=== PATIENT | female | born 1940 | race Hispanic/Latino ===

== ENCOUNTER 2019-11-01 10:56 | Outpatient (CLI) | payer MEDICARE, SELFPAY ==
--- NOTE | ~2019-11-01 | XR_ITS ---
EXAMINATION: XR chest 2V DATE: 11/01/2019 11:45 INDICATION: Cough. TECHNIQUE: Frontal and lateral views of the chest were obtained. COMPARISON: Chest 2 views 04/04/2004 FINDINGS: The chest demonstrates clear lungs without pneumonia, pleural effusion, or pneumothorax. Th e heart size is normal. IMPRESSION: 1. No acute cardiopulmonary disease. Reviewed, dictated and finalized at location A.
[2019-11-01 11:46] LABS: Basophils Percent Auto 0.7 % (0.2-1.2); Eosinophils Absolute Auto 0.2 K/mm3 (0-0.3); Eosinophils Percent Auto 4.9 % (0-4.4); Hematocrit 42.3 % (37.0-47.0); Hemoglobin 14.2 g/dL (12.0-15.0); Immature Granulocyte Absolute 0.02 K/mm3 (0.00-0.031); Immature Granulocyte Percent A 0.4 % (0-0.5); Lymphocytes Percent Auto 28.8 % (18.3-44.2); Mean Corpuscular HGB Conc 33.6 g/dl (32-36); Mean Corpuscular Hemoglobin 30.3 pg (26-34); Mean Corpuscular Volume 90.2 fl (80-100); Mean Platelet Volume 9.6 fl (7.4-10.4); Monocytes Absolute Auto 0.4 K/mm3 (0.1-0.6); Monocytes Percent Auto 8.9 % (2.6-8.5); Neutrophils Absolute Auto 2.5 K/mm3 (1.3-6.7); Neutrophils Percent Auto 56.3 % (45.5-73.1); Platelet Count Result 276 k/mm3 (150-375); Red Blood Count 4.69 M/mm3 (4.2-5.4); Red Cell Distribution Width 13.7 % (11.5-14.5); White Blood Count 4.5 K/mm3 (4.5-10.0)
[2019-11-01 11:57] LABS: Alanine Aminotransferase 22 U/L (4-35); Albumin Level 4.6 g/dL (3.5-5.1); Alkaline Phosphatase 92 U/L (38-126); Aspartate Amino Transferase 30 U/L (14-36); Bilirubin,Total 0.4 mg/dL (0.2-1.3); Blood Urea Nitrogen 25 mg/dL (7-17); Calcium 9.1 mg/dL (8.4-10.2); Carbon Dioxide 26 mmol/L (22-30); Chloride 100 mmol/L (98-107); Cholesterol 265 mg/dL (0-200); Estimated Glomerular Filt Rate > 60; Glucose 111 mg/dL (65-105); HDL Direct 46 mg/dL; Potassium 3.6 mmol/L (3.4-5.0); Sodium 137 mmol/L (137-145); Triglycerides 177 mg/dL (<150)
[2019-11-01 12:08] LABS: LDL Cholesterol Direct 155 mg/dL
== END 2019-11-01 10:57 | disposition home or self-care (01) ==
PROVIDERS: PCP Family Medicine; Visit Provider Family Medicine
DX: R05 Cough (principal); I10 Essential (primary) hypertension; E78.2 Mixed hyperlipidemia; E04.9 Nontoxic goiter, unspecified
CPT/HCPCS: 36415; 71046; 80053; 80061; 84443; 85025

== ENCOUNTER 2020-10-21 14:08 | Outpatient (CLI) | payer MEDICARE, SELFPAY ==
[2020-10-21 15:10] LABS: Basophils Percent Auto 0.5 % (0.2-1.2); Eosinophils Absolute Auto 0.2 K/mm3 (0-0.3); Eosinophils Percent Auto 2.7 % (0-4.4); Hematocrit 42.9 % (37.0-47.0); Hemoglobin 14.3 g/dL (12.0-15.0); Immature Granulocyte Absolute 0.03 K/mm3 (0.00-0.031); Immature Granulocyte Percent A 0.5 % (0-0.5); Lymphocytes Absolute Auto 1.46 K/mm3 (0.9-3.2); Mean Corpuscular HGB Conc 33.3 g/dl (32-36); Mean Corpuscular Hemoglobin 30.7 pg (26-34); Mean Corpuscular Volume 92.1 fl (80-100); Mean Platelet Volume 9.5 fl (7.4-10.4); Monocytes Absolute Auto 0.4 K/mm3 (0.1-0.6); Monocytes Percent Auto 7.8 % (2.6-8.5); Neutrophils Absolute Auto 3.5 K/mm3 (1.3-6.7); Neutrophils Percent Auto 62.5 % (45.5-73.1); Platelet Count Result 306 k/mm3 (150-375); Red Blood Count 4.66 M/mm3 (4.2-5.4); Red Cell Distribution Width 14.2 % (11.5-14.5); White Blood Count 5.6 K/mm3 (4.5-10.0)
[2020-10-21 15:24] LABS: Alanine Aminotransferase 26 U/L (4-35); Albumin Level 4.4 g/dL (3.5-5.1); Alkaline Phosphatase 88 U/L (38-126); Anion Gap 8 mmol/L (8-16); Aspartate Amino Transferase 31 U/L (14-36); Bilirubin,Total 0.2 mg/dL (0.2-1.3); Blood Urea Nitrogen 24 mg/dL (7-17); Calcium 9.4 mg/dL (8.4-10.2); Carbon Dioxide 26 mmol/L (22-30); Chloride 104 mmol/L (98-107); Cholesterol 221 mg/dL (0-200); Estimated Glomerular Filt Rate 53; Glucose 116 mg/dL (65-105); HDL Direct 52 mg/dL; Sodium 138 mmol/L (137-145); Triglycerides 211 mg/dL (<150)
[2020-10-21 15:35] LABS: LDL Cholesterol Direct 111 mg/dL
[2020-10-25 02:20] LABS: Vitamin D 1,25 (OH)2 Total 55 pg/mL (18-72); Vitamin D2 1,25 (OH)2 <8 pg/mL; Vitamin D3 1,25 (OH)2 55 pg/mL
== END 2020-10-21 14:09 | disposition home or self-care (01) ==
LOC: ANHLAB 14:24
PROVIDERS: PCP Family Medicine; Visit Provider Family Medicine
DX: E03.9 Hypothyroidism, unspecified (principal); E78.2 Mixed hyperlipidemia; I10 Essential (primary) hypertension; E55.9 Vitamin D deficiency, unspecified
CPT/HCPCS: 36415; 80053; 80061; 82652; 84443; 85025

== ENCOUNTER 2021-02-17 14:59 | Outpatient (CLI) | payer MEDICARE, SELFPAY ==
--- NOTE | ~2021-02-17 | DEXA_ITS ---
Bone Density Report Name: Sarah Tan Age: 80 Sex: Female Ethnicity: White Date of : 1940 Indication: osteopenia; height loss; Referring Provider: JT JULIEN Study: Bone densitometry was performed. Exam Date: February 17, 2021 Accession number: [id number] Bone Density: Region BMD T-score Z-score Classification AP Spine (L1-L4) 0.928 -1.1 1.7 Osteopenia Femoral Neck (Left) 0.871 0.2 2.6 Normal Total Hip (Left) 0.929 -0.1 2.1 Normal Total Hip Bilateral Avg 0.931 -0.1 2.1 Normal Femoral Neck (Right) 0.957 1.0 3.4 Normal Total Hip (Right) 0.932 -0.1 2.1 Normal World Health Organization criteria for BMD impression classify patients as: Normal (T-score at or above -1.0), Osteopenia (T-score between -1.0 and -2.5), or Osteoporosis (T-score at or below -2.5). 10-year Fracture Risk(1): Major Osteoporotic Fracture 8.0% Hip Fracture 1.1% Reported Risk Factors: [place] (), Neck BMD=0.871, BMI=31.5 (1) FRAX(R) Version 3.08. Fracture probability calculated for an untreated patient. Fracture probability may be lower if the patient has received treatment. Previous Exams: Region Exam Age BMD T-score BMD Change BMD Change Date g/cm2 vs Baseline vs Previous AP Spine(L1-L4) 02/17/2021 80 0.928 -1.1 0.029(3.2%)# 0.045(5.1%)* 08/10/2017 77 0.883 -1.5 -0.016(-1.8%)# -0.016(-1.8%)# 06/01/2005 65 0.899 -1.3 Total Hip(Left) 02/17/2021 80 0.929 -0.1 -0.022(-2.3%)# -0.006(-0.6%) 08/10/2017 77 0.935 -0.1 -0.016(-1.7%)# -0.016(-1.7%)# 06/01/2005 65 0.951 0.1 Total Hip(Right) 02/17/2021 80 0.932 -0.1 -0.102(-9.8%)# 0.031(3.4%)* 08/10/2017 77 0.901 -0.3 -0.133(-12.8%) -0.133(-12.8%) 06/01/2005 65 1.034 0.8 *Denotes significance at 95% confidence level, LSC for AP Spine = 0.022 g/cm2, LSC for Total Hip = 0.027 g/cm2 Clinical Information Provided by Patient: Has used the following medications: Vitamin D, Calcium Patient maximum height was 64 Menopause Age: 53 Onset of menses at age 11 Number of children 2 Impression: The patient has low bone mass, based on the Total Spine T-score. The patient has an estimated ten-year risk of hip fracture of 1.1% and an estimated ten-year risk of major fracture of 8%, based on the WHO FRAX algorithm. No significant bone loss was observed. Discussion: BONE DENSITY IS LOW AT ONE OR MORE SKELETAL SITES. This patient's lowest T-score is lo
--- NOTE | ~2021-02-17 | MM_ITS ---
EXAMINATION: MM screening debra BI w colton HISTORY: Screening TECHNIQUE: Craniocaudal and mediolateral oblique 3-D tomosynthesis images were obtained and synthetic 2-D images were generated. CAD analysis was submitted and interpreted. COMPARISON: No prior mammogram is available for comparison at this institution. BREAST PARENCHYMAL COMPOSITION: There are scattered areas of fibroglandular density. FINDINGS: There is no evidence of suspicious mass, calcification, or architectural distortion to sugg est malignancy in either breast. There has been no suspicious interval change. IMPRESSION: 1. No mammographic evidence of malignancy. 2. Recommend routine screening mammography in one year. BI-RADS Category 1: Negative Reviewed, dictated and finalized at location A.
== END 2021-02-17 15:00 | disposition home or self-care (01) ==
PROVIDERS: PCP Family Medicine; Visit Provider Family Medicine
DX: Z12.31 Encounter for screening mammogram for malignant neoplasm of breast (principal); Z78.0 Asymptomatic menopausal state; M85.88 Other specified disorders of bone density and structure, other site
CPT/HCPCS: 77063; 77067; 77080

== ENCOUNTER → 2021-06-30 14:44 | Outpatient (CLI) | payer MEDICARE, SELFPAY ==
--- NOTE | ~2021-06-30 | CT_ITS ---
EXAMINATION: CT sinus wo con DATE: 06/30/2021 14:59 INDICATION: Chronic sinusitis TECHNIQUE: Computed tomography (CT) of the paranasal sinuses was performed without intravenous contra st. The dose-length product was 264.97 mGy-cm. Automated exposure control and iterative reconstructio n technique were employed. COMPARISON: CT dated 08/22/2017 FINDINGS: Mild mucosal thickening left maxillary sinus. Leftward nasal septal deviation. Ostiomeatal units are patent. No air-fluid levels or significant mucoperiosteal reaction. Mastoids are pneumatize d. There is intracranial atherosclerosis. IMPRESSION: 1. Mild left maxillary sinus disease. Reviewed, dictated and finalized at location B. R EXPEDITION GUIDE
== END ==
PROVIDERS: PCP Family Medicine; Visit Provider Otolaryngology
DX: J32.9 Chronic sinusitis, unspecified (principal)
CPT/HCPCS: 70486

== ENCOUNTER 2021-07-28 15:13 | Outpatient (CLI) | payer MEDICARE, SELFPAY ==
--- NOTE | ~2021-07-28 | XR_ITS ---
EXAMINATION: XR chest 2V 07/28/2021 15:39 INDICATION: Wheezing and hypertension PROCEDURE: 2 view chest COMPARISON: 11/01/2019 FINDINGS: The lungs are clear. The cardiomediastinal silhouette is within normal limits. There are no pleural effusions. There is no pneumothorax suspected. IMPRESSION: 1: NO ACUTE CARDIOPULMONARY DISEASE. Reviewed, dictated and finalized at location B. K TRACER
[2021-07-28 17:20] LABS: Basophils Absolute Auto 0.1 K/mm3 (0.0-0.1); Eosinophils Absolute Auto 0.1 K/mm3 (0-0.3); Eosinophils Percent Auto 1.8 % (0-4.4); Hematocrit 45.2 % (37.0-47.0); Hemoglobin 15.3 g/dL (12.0-15.0); Immature Granulocyte Absolute 0.04 K/mm3 (0.00-0.031); Immature Granulocyte Percent A 0.8 % (0-0.5); Lymphocytes Absolute Auto 1.65 K/mm3 (0.9-3.2); Lymphocytes Percent Auto 33.2 % (18.3-44.2); Mean Corpuscular HGB Conc 33.8 g/dl (32-36); Mean Corpuscular Hemoglobin 30.8 pg (26-34); Mean Corpuscular Volume 91.1 fl (80-100); Mean Platelet Volume 9.7 fl (7.4-10.4); Monocytes Absolute Auto 0.5 K/mm3 (0.1-0.6); Monocytes Percent Auto 9.5 % (2.6-8.5); Neutrophils Absolute Auto 2.7 K/mm3 (1.3-6.7); Neutrophils Percent Auto 53.7 % (45.5-73.1); Platelet Count Result 280 k/mm3 (150-375); Red Blood Count 4.96 M/mm3 (4.2-5.4); Red Cell Distribution Width 14.2 % (11.5-14.5)
[2021-07-28 17:33] LABS: Alanine Aminotransferase 25 U/L (4-35); Albumin Level 4.8 g/dL (3.5-5.1); Alkaline Phosphatase 85 U/L (38-126); Anion Gap 7 mmol/L (8-16); Aspartate Amino Transferase 32 U/L (14-36); Bilirubin,Total 0.6 mg/dL (0.2-1.3); Blood Urea Nitrogen 29 mg/dL (7-17); Calcium 9.5 mg/dL (8.4-10.2); Carbon Dioxide 29 mmol/L (22-30); Chloride 100 mmol/L (98-107); Cholesterol 232 mg/dL (0-200); Estimated Glomerular Filt Rate 47; Glucose 127 mg/dL (65-110); HDL Direct 61 mg/dL; Potassium 3.9 mmol/L (3.4-5.0); Sodium 136 mmol/L (137-145); Triglycerides 164 mg/dL (<150)
[2021-07-28 17:44] LABS: LDL Cholesterol Direct 110 mg/dL
== END 2021-07-28 15:14 | disposition home or self-care (01) ==
PROVIDERS: PCP Family Medicine; Visit Provider Family Medicine
DX: R06.2 Wheezing (principal); E78.2 Mixed hyperlipidemia; I10 Essential (primary) hypertension; R73.09 Other abnormal glucose
CPT/HCPCS: 36415; 71046; 80053; 80061; 83036; 85025

== ENCOUNTER 2023-01-20 14:46 | Outpatient (CLI) | payer MEDICARE, SELFPAY ==
--- NOTE | ~2023-01-20 | XR_ITS ---
EXAMINATION: XR lumbar spine min 4V DATE: 01/20/2023 15:10 INDICATION: Cephalgia, unspecified TECHNIQUE: Anteroposterior, lateral, and bilateral oblique views of the lumbar spine, and cone-down l ateral view of the lumbosacral junction were obtained. COMPARISON: None. FINDINGS: But alignment is normal. There is no fracture. Vertebral body heights are maintained. There is mild loss of intervertebral disc space height at L5-S1. There is moderate facet joint osteoarthri tis. Small degenerative osteophytes project from the anterior endplates of multiple vertebral bodies. Pelvic calcifications likely reflect phleboliths and calcified uterine fibroids. IMPRESSION: 1. Mild to moderate lumbar spondylosis without acute findings. Reviewed, dictated and finalized at location B.
== END 2023-01-20 14:47 | disposition home or self-care (01) ==
PROVIDERS: PCP Family Medicine; Visit Provider Family Medicine
DX: M43.06 Spondylolysis, lumbar region (principal)
CPT/HCPCS: 72110

== ENCOUNTER 2023-10-20 14:34 | Outpatient (CLI) | payer MEDICARE, SELFPAY ==
[2023-10-20 16:55] LABS: Alanine Aminotransferase 23 U/L (6-35); Albumin Level 4.6 g/dL (3.5-5.1); Alkaline Phosphatase 92 U/L (38-126); Anion Gap 11 mmol/L (4-12); Aspartate Amino Transferase 27 U/L (14-36); Bilirubin,Total 0.5 mg/dL (0.2-1.3); Blood Urea Nitrogen 23 mg/dL (7-17); Carbon Dioxide 23 mmol/L (22-30); Chloride 107 mmol/L (98-107); Estimated Glomerular Filt Rate 60; Glucose 94 mg/dL (65-110); Potassium 3.6 mmol/L (3.4-5.0); Sodium 141 mmol/L (137-145)
[2023-10-20 17:46] LABS: Hemoglobin A1C 6.7 % (<5.7)
[2023-10-20 17:54] LABS: Creatinine Urine 73.1 mg/dL
[2023-10-20 17:55] LABS: Microalbumin Urine Random 45.3 mg/L (0-16.7)
== END 2023-10-20 14:35 | disposition home or self-care (01) ==
LOC: ANHLAB 14:35
PROVIDERS: PCP Family Medicine; Visit Provider Family Medicine
DX: E78.00 Pure hypercholesterolemia, unspecified (principal); E11.9 Type 2 diabetes mellitus without complications; N18.30 Chronic kidney disease, stage 3 unspecified
CPT/HCPCS: 36415; 80053; 82043; 83036

== ENCOUNTER 2023-12-14 10:37 | Outpatient (CLI) | payer MEDICARE, SELFPAY ==
--- NOTE | ~2023-12-14 | CT_ITS ---
Non-contrast Head CT History: Altered mental status Technique: Axial non-contrast imaging of the brain was performed. Dose reduction technique was used on this scan by utilizing automated exposure control and iterative reconstruction technique. The dose -length product (DLP) was 599.57 mGy-cm. Findings: There is no evidence of intracranial hemorrhage, mass lesion, or acute infarct. Brain par enchyma appears normal. The ventricles and subarachnoid spaces are normal in size. The calvarium ap pears normal. The visualized paranasal sinuses and mastoid air cells are clear. Impression: No significant abnormality seen. Reviewed, dictated and finalized at location . Impression: No significant abnormality seen.
== END 2023-12-14 10:38 ==
LOC: MICIMG 10:38
PROVIDERS: PCP Family Medicine; Visit Provider Physician Assistant
DX: R42 Dizziness and giddiness (principal); R40.4 Transient alteration of awareness
CPT/HCPCS: 70450

== ENCOUNTER 2024-03-22 15:21 | Outpatient (CLI) | payer MEDICARE, SELFPAY ==
[2024-03-22 15:49] LABS: Basophils Percent Auto 0.8 % (0.2-1.2); Eosinophils Absolute Auto 0.1 K/mm3 (0-0.3); Eosinophils Percent Auto 2.1 % (0-4.4); Hematocrit 44.5 % (37.0-47.0); Hemoglobin 14.8 g/dL (12.0-15.0); Immature Granulocyte Absolute 0.03 K/mm3 (0.00-0.031); Immature Granulocyte Percent A 0.6 % (0-0.5); Lymphocytes Absolute Auto 1.31 K/mm3 (0.9-3.2); Lymphocytes Percent Auto 27.4 % (18.3-44.2); Mean Corpuscular HGB Conc 33.3 g/dl (32-36); Mean Corpuscular Hemoglobin 30.7 pg (26-34); Mean Corpuscular Volume 92.3 fl (80-100); Mean Platelet Volume 9.4 fl (7.4-10.4); Monocytes Absolute Auto 0.4 K/mm3 (0.1-0.6); Monocytes Percent Auto 8.4 % (2.6-8.5); Neutrophils Absolute Auto 2.9 K/mm3 (1.3-6.7); Neutrophils Percent Auto 60.7 % (45.5-73.1); Platelet Count Result 251 k/mm3 (150-375); Red Blood Count 4.82 M/mm3 (4.2-5.4); Red Cell Distribution Width 14.5 % (11.5-14.5); White Blood Count 4.8 K/mm3 (4.5-10.0)
[2024-03-22 16:26] LABS: Alanine Aminotransferase 21 U/L (6-35); Albumin Level 4.6 g/dL (3.5-5.1); Alkaline Phosphatase 91 U/L (38-126); Anion Gap 11 mmol/L (4-12); Aspartate Amino Transferase 29 U/L (14-36); Bilirubin,Total 0.5 mg/dL (0.2-1.3); Blood Urea Nitrogen 12 mg/dL (7-17); Calcium 9.4 mg/dL (8.4-10.2); Carbon Dioxide 25 mmol/L (22-30); Chloride 104 mmol/L (98-107); Estimated Glomerular Filt Rate > 60; Glucose 92 mg/dL (65-110); Potassium 3.8 mmol/L (3.4-5.0); Sodium 140 mmol/L (137-145)
[2024-03-22 18:04] LABS: Creatinine Urine 109.5 mg/dL
[2024-03-22 18:05] LABS: MALB Creatinine Ratio 62.6 mg/g (0-30); Microalbumin Urine Random 68.6 mg/L (0-16.7)
[2024-03-22 21:07] LABS: Hemoglobin A1C 7.2 % (<5.7)
== END 2024-03-22 15:22 | disposition home or self-care (01) ==
PROVIDERS: PCP Family Medicine; Visit Provider Family Medicine
DX: E11.9 Type 2 diabetes mellitus without complications (principal); E78.00 Pure hypercholesterolemia, unspecified; R32 Unspecified urinary incontinence; E03.9 Hypothyroidism, unspecified; I12.9 Hypertensive chronic kidney disease with stage 1 through stage 4 chronic kidney disease, or unspecified chronic kidney disease; N18.30 Chronic kidney disease, stage 3 unspecified
CPT/HCPCS: 36415; 80053; 82043; 83036; 84443; 85025

== ENCOUNTER 2024-03-28 11:20 | Outpatient (CLI) | payer MEDICARE, SELFPAY ==
[2024-03-28 12:13] LABS: Influenza A QL RT-PCR Negative (Negative); Influenza B QL RT-PCR Negative (Negative); RSV RNA, RT-PCR Negative (Negative); SARS-CoV-2 RNA PCR Negative (Negative)
== END 2024-03-28 11:21 | disposition home or self-care (01) ==
LOC: ANHLAB 11:22
PROVIDERS: PCP Family Medicine; Visit Provider Physician Assistant
DX: J02.9 Acute pharyngitis, unspecified (principal); R05.9 Cough, unspecified
CPT/HCPCS: 87637

== ENCOUNTER 2024-05-14 12:16 | Outpatient (CLI) | payer MEDICARE, SELFPAY ==
--- NOTE | ~2024-05-14 | XR_ITS ---
Clinical Indication: Pleurodynia PA and lateral views of the chest: Comparison: 07/28/2021 Findings: The lungs are clear, without evidence of focal consolidation or pleural effusion. Cardiome diastinal silhouette is within normal limits. Bones and soft tissues are unremarkable. Impression: Normal chest. Reviewed, dictated and finalized at [facility]. ITY SYSTEM REPAIRER Impression: Normal chest.
== END 2024-05-14 12:17 | disposition home or self-care (01) ==
PROVIDERS: PCP Family Medicine; Visit Provider Student in an Organized Health Care Education/Training Program
DX: R07.81 Pleurodynia (principal)
CPT/HCPCS: 71046

== ENCOUNTER 2024-05-15 14:30 | Outpatient (RCR) | payer MEDICARE, SELFPAY ==
--- NOTE | 2024-04-24 07:52 | PCPTNOTE ---
pt did not show for evaluation appt.
--- NOTE | 2024-04-25 13:34 | PTOPEVAL1 ---
Assessment and note entered by Nirmala Nettles, PT Evaluation Information Assessment Status Evaluation ICD-10 Condition Codes (PT) M25.561 Other ICD-10 Condition Codes ( M76.51 patellar tendonitis PT) Onset about one year Subjective Information had TKR in 2008, saw surgeon about 1 year ago and xray was OK, he told her there was inflammation in the knee; Activity: active; gym- bicycle 30 minutes, walk on treadmill 30-40 minutes, weight machines enjoys bowling; Reported Pain Level Pain Score Self Report Additional Pain Score Comments pain range in the past week -11/13; decrease pain: muscle cream; OTC meds, ice, heat, red light; instruct not to use heat for irritation increase pain: walking/stand 3-4 hours sleeping OK-- take sleep meds Assessment PT Clinical Summary Sarah has the diagnosis of R knee patellar tendonitis. She is active, goes to the fitness center for exercises and bowls regularly. Self assessment LE functional scale rating of 29% limitation in activity level. Standing/walking tolerance of 3-4 hours before have to sit down due to knee pain. Her medical history includes R TKR in 2008; she has followed up with the surgeon and xray was OK, per pt. With the evaluation: she has good strength of R LE, tightness of R hip IR, ER,extension motions and R knee flexion is 95'. Patella is positioned in slight lateral tilt. Skilled PT services are indicated for modalities to decrease pain, therapeutic exercises to stretch R hip and knee with education for HEP and pain management. Plan of Care Interventions Electrical Stimulation,Hot Pack/Cold Pack,Manual Therapy,Neuro Re-education,Patient Education,Therapeutic Activities,Therapeutic Exercise,Ultrasound,Other Other Interventions taping PT Services Indicated Yes Treatment Frequency and 1-2x/wk for 6 visits Duration These treatments will address the objective and functional deficits as defined above. The patient will be advanced safely and appropriately in order for the patient to progress towards his/her prior level of function. Additional exercises will be introduced and as well as a comprehensive home exercise program upon discharge, if needed, ?to ensure carryover of functional gains achieved in the clinic. This treatment plan has been reviewed and agreement upon by the patient.
--- NOTE | 2024-05-15 15:19 | PTOPDC ---
Assessment and note entered by Nirmala Nettles, PT Discharge Report Assessment Status Discharge ICD-10 Condition Codes (PT) Pain in right knee M25.561 Other ICD-10 Condition Codes ( M76.51 patellar tendonitis PT) Onset about one year Subjective Information knee is better; going to the fitness center and able to walk on the treadmill about 30-40 minutes; knee support strap is helping; have been doing all of the exercises from here at home also; agree to make today her last day of therapy; Reported Pain Level Pain Score Self Report Additional Pain Score Comments pain range in the past week 0-2/10; R distal patellar tendon, distal patella increase pain: sit too long and then go to stand up; walking too long, about 2-3 hours decrease pain: move, use knee strap brace; over counter meds- ibuprofen, tylenol kinesiotape horizontal strip at distal patella, educated pt on application of kinesiotape she wore in strap, long velcro that wrapped over distal patellar area- she stated it helps, but tight and left indentation in her skin. reinforced monitor skin and avoid too tight and indentations of skin Assessment PT Clinical Summary Sarah has received 4 PT sessions. She has improved with: decreased pain from 5-6/10 to 0-2/10; self assessment LE functional scale rating from 29 to 14% limitation in activity level reported walking/standing tolerance is about the same at 2-3 hours of activity; increase flexibility of R hip extension, IR and knee flexion motions; use of kinesiotape or knee strap to decrease pain. Education completed for HEP. The goals were partially met. Discharge PT services. She is to continue with her HEP and activity at fitness [place]. Plan of Care PT Services Indicated No
== END 2024-05-16 12:04 | disposition home or self-care (01) ==
LOC: ANHPT 14:30
PROVIDERS: PCP Family Medicine; Visit Provider Family Medicine
DX: M76.51 Patellar tendinitis, right knee (principal)
CPT/HCPCS: 97110; 97140; 97161; 97530

== ENCOUNTER 2024-05-17 14:06 | Outpatient (CLI) | payer MEDICARE, SELFPAY ==
--- NOTE | ~2024-05-17 | MM_ITS ---
EXAMINATION: MM screening debra BI w colton HISTORY: Screening TECHNIQUE: Craniocaudal and mediolateral oblique 3-D tomosynthesis images were obtained and synthetic 2-D images were generated. CAD analysis was submitted and interpreted. COMPARISON: 02/17/2021 BREAST PARENCHYMAL COMPOSITION: There are scattered areas of fibroglandular density. FINDINGS: There is no evidence of suspicious mass, calcification, or architectural distortion to sugg est malignancy in either breast. There has been no suspicious interval change. IMPRESSION: 1. No mammographic evidence of malignancy. 2. Recommend routine screening mammography in one year. BI-RADS CATEGORY 1 - NEGATIVE Reviewed, dictated and finalized at location B. CT ORIENTED PROGRAMMER
== END 2024-05-17 14:07 | disposition home or self-care (01) ==
PROVIDERS: PCP Family Medicine; Visit Provider Student in an Organized Health Care Education/Training Program
DX: Z12.31 Encounter for screening mammogram for malignant neoplasm of breast (principal)
CPT/HCPCS: 77063; 77067

== ENCOUNTER 2024-07-26 15:12 | Outpatient (CLI) | payer MEDICARE, SELFPAY ==
--- OUTSIDE RECORDS SUMMARY | 2024-07-26 14:52 | XMS_ITS | Clinical Summary ---
Author Organization [facility] Address [address] [place] [address] Care Team Providers Care Gate Agent Name Role Phone Bianca Booth MD Primary Care Provider Source Comments [facility],non[facility] Affiliates and Associated Physician Practices is amultiple site organization consisting of ambulatory clinics and hospital sitesin [place], [place], [place] and [place]. This disclosure is being madepursuant to the Care Everywhere program and may not contain all information available regarding this patient. Last updated 18.[facility] Allergies Active Allergy Reactions Criticality Noted Date Comments Hydrocodone 06/14/2011 Dizzy and palpitations Medications * Be aware that medications may not be up to date on this document. Alwaysverify current medications with the patient. Medication Sig Dispensed Refills Start Date End Date Status triamterene-hydrochlo rothiazide (DYAZIDE) 37.5-25 MG capsule Take 1 Cap by mouth once daily. Active rosuvastatin (CRESTOR) 5 MG tablet Take 5 mg by mouth at bedtime. Active Cholecalciferol (VITAMIN D3) 06324 UNIT CAPS Take by mouth 2 times daily. Active HYALURONIC ACID-VITAMIN C PO Take by mouth once daily. Active vitamin E (TOCOPHERYL) 400 UNIT tablet Take by mouth 2 times daily. Instructed patient to stop 1 week before surgery. Active Flaxseed, Linseed, (FLAXSEED OIL PO) Take by mouth 2 times daily. Active omeprazole (PRILOSEC) 40 MG capsule Take 40 mg by mouth as needed. Active GLUCOSAMINE CHONDROITIN COMPLX PO Take by mouth. Active aspirin 325 MG tablet Take 1 Tab by mouth 2 times daily. 120 Tab 09/30/2011 Active oxycodone-acetaminoph en (PERCOCET) 10-325 MG tablet Take 1 Tab by mouth every 4 hours as needed for Pain. 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/07/11 Aftercare following joint replacement L TKR 08/03/2011 S/P total knee replacement 07/28/2011 Immunizations Name Administration Dates Next Due PNEUMOCOCCAL PPSV23 10/01/2011 Family History Medical History Relation Name Comments Cancer Father prostate Diabetes Mother Heart Failure Mother Relation Name Status Comments Father Mother Social History Tobacco Use Types Packs/Day Years Used Date Smoking Tobacco: Never Smokeless Tobacco: Never Alcohol Use Standard Drinks/Week Comments No 0 (1 standard drink = 0.6 oz pur e alcohol) Sex and Gender Information Value Date Recorded Sex Assigned at Not on file Gender Identity Not on file Sexual Orientation Not on file Last Filed Vital Signs Vital Sign Reading Time Taken Comments Blood Pressure 121/61 10/01/2011 9:40 AM CDT Pulse 66 10/01/2011 8:42 AM CDT Temperature 37.3 C (99.1 F) 10/01/2011 8:42 AM CDT Respiratory Rate 16 10/01/2011 8:42 AM CDT Oxygen Saturation 96% 10/01/2011 8:42 AM CDT Inhaled Oxygen Concentration - - Weight 75.2 kg (165 lb 12.6 oz) 09/29/2011 6:55 AM CDT Height 162.6 cm (5' 4 ) 09/29/2011 6:55 AM CDT Body Mass Index 28.46 09/29/2011 6:55 AM CDT Plan of Treatment Health Maintenance Due Date Last Done Comments BONE DENSITY TESTING 1940 DTAP/TDAP/TD VACCINES (1 - Tdap) 1957 ZOSTER VACCINE (1 of 2) 1988 PNEUMOCOCCAL VACCINE 50+ (2 of 2 - PCV) 09/30/2012 10/01/2011 Respiratory Syncytial Virus (RSV) Vaccine Pt: or over 60 yrs (1 - 1-dose 75+ series) 2013 COVID-19 VACCINE (1 2023-2 5 season) 2024 INFLUENZA VACCINE (#1) 2024 DEPRESSION SCREENING 06/06/2024 MEDICARE AWV CALENDAR YEAR 2024 HEPATITIS B VACCINE Aged Out No longe r eligible based on patient's age to complete this topic HIB VACCINE Aged Out No longer eligi ble based on patient's age to complete this topic HPV VACCINE Aged Out No longer eligi ble based on patient's age to complete this topic MENINGOCOCCAL (Group B) VACCINE Aged Out No longer eligible based on patient's age to complete this topic MENINGOCOCCAL VACCINE Aged Out No deniz joshua eligible based on patient's age to complete this topic Advance Directives Documents on File Type Date Recorded Patient Side Gluer Expl anation Adv Directive/Living Will/POA 07/10/2011 9:58 AM * FULL RESUSCITATION (Latest Code Status on File) Date Activated Date Inactivated Comments 07/07/2011 10:45 AM 07/10/2011 12:21 AM Care Teams Gate Agent Relationship Specialty Start Date End Date Bianca Booth MD [address] [place] [address] [address] [place] [address] PCP - General 06/21/11
--- OUTSIDE RECORDS SUMMARY | 2024-07-26 14:52 | XMS_ITS | Continuity of Care Document ---
Author Organization [facility] Address [address] [facility] [address] [place] [address] Phone Care Team Providers Care Inspector Repairer [place] Name Role Phone Sarah Hai Unavailable Unavailable Procedures Procedure Date Eye Exam, New Patient Refraction Advance Directives Directive Yes / No Effective Date File Name No Information Encounters Encounter Description Practice Location Reason(s) For Visit Diagnoses Date Provider Providers Copied on Encounter [facility], [address], [place], [place], [id number], [place] tel:[phone] [facility] No Information 3-201 0 Sarah [facility]. [address], [place], [address], [place]. tel:[phone] Family History Family Member Type Diagnosis Age At Onset No Information Payers Payer name Insurance type Covered libertarian ID Authoriza tion(s) No Information Social History Type Description Quantity Date Captured Comments Sex Female Smoking Status No Information Chief Complaint And Reason For Visit No Information Reason For Referral Reason For Referral No Information History Of Present Illness Encounter Date Complaint History Of Prese nt Illness No Information Functional Status Date Functional Assessmen t No Information Instructions Date Instruction Additional Infor mation No Information Assessments Type Assessment Date No Information Patient Care Teams Name Effective Dates (start - stop) Status Members No Information
--- OUTSIDE RECORDS SUMMARY | 2024-07-26 14:52 | XMS_ITS | Clinical Summary ---
Author Organization [facility] Care Team Providers Care Welder Assembler Name Role Phone Unavailable Primary Care Provider Unavailabl e Social History Tobacco Use Types Packs/Day Years Used Date Smoking Tobacco: Never Assessed Comments Unknown Sex and Gender Information Value Date Recorded Sex Assigned at Not on file Legal Sex Female 2:12 PM CDT Gender Identity Not on file Sexual Orientation Not on file Plan of Treatment Health Maintenance Due Date Last Done Comments DEXA Bone Density 1940 Hepatitis C Virus (HCV) Screening 1940 TdaP Immunization 1940 Pneumococcal Immunization (5 0+ years) (1 of 1 - PCV) 1988 Zoster Immunization (1 of 2) 1988 Respiratory Syncytial Virus (RSV) Immunization (Adult) (1 - 1-dose 75+ series) 2013 Influenza Immunization (#1) 2024 SARS-COV-2 Immunization ( - season) 2024 Hepatitis B Immunization Aged Out No longer eligible based on patient's age to complete this topic Meningococcal Immunization (ACWY) Aged Out No longer eligible based on patient's age to complete this topic Rotavirus Immunization Aged Out No lo nger eligible based on patient's age to complete this topic
--- OUTSIDE RECORDS SUMMARY | 2024-07-26 14:52 | XMS_ITS | Continuity of Care Document ---
Author Organization [facility] Address [address] [place] [address] Phone Care Team Providers Care Pediatric Occupational Therapist Name Role Phone Velma Bran MD Unavailable Unavailable Allergies, Adverse Reactions, Alerts Substance Reaction Status Criticality No Known Allergies Active No Inform ation Procedures Procedure Date X-RAY EXAM OF KNEE, A/P & LAT KENALOG 10 MG ASP/INJ MAJOR JOINTOR BURSA, SHOULDER, H IP,KNEE W/O US GUIDANCE OFFICE [id number] Advance Directives Directive Yes / No Effective Date File Name No Information Encounters Encounter Description Practice Location Reason(s) For Visit Diagnoses Date Provider Providers Copied on Encounter OFFICE [id number], [address], [place], [place], [id number], [place] tel:[phone] [facility] RT Knee (chief complaint) Chronic pain of right knee Shant Carreon. Doc [address], [facility] [address], [place], [place], [address], [place]. tel:[phone] Referring Provider: Doc [address] [facility] [address], [place], [address]. tel:[phone] Family History Family Member Type Diagnosis Age At Onset No Information Payers Payer name Insurance type Covered green party ID Authoriza tion(s) [facility] AD[employer] PPO [place] [id number] Social History Type Description Quantity Date Captured Comments Alcohol Use Details Unknown Caffeine Use Details Unknown Tobacco Use Status Current non-smoker Smoking Status Never smoker Non-Smoking Tobacco Use Details : No Details Available : No Details Available Sex Female Sexual Orientation Straight or heterosexual Gender Identity Female Vital Signs Date / Time: Height Weight BMI Pulse Rate Blood Pressure Temperature Respiratory Rate Body Surface Area Head Circumference Head Circ. Percentile Wt./Hill. Percentile BMI percentile Pulse Ox Inhaled Ox 2:56 PM 65.00 in 72.575 kg (160.00 lbs) 26.6 3 kg/m catherineer (2) Chief Complaint And Reason For Visit From encounter dated '05/11/2021 13:00'. RT Knee (chief complaint). Description: hx right and left tkr left painless right with intermittent3/10 stabbing front left xrays good position without change imp scar tissue right knee injection given right knee fu as needed Reason For Referral Reason For Referral No Information Plan Of Treatment Date Type Action Status Referral Ordered: X-RAY EXAM OF KNEE, ONE OR TWO VIEWS Right ordered History Of Present Illness Encounter Date Complaint History Of Prese nt Illness RT Knee hx right and lef t tkr left painless right with intermittent 3/10 stabbing front left xrays good position without change imp scar tissue right knee injection given right knee fu as needed Functional Status Date Functional Assessmen t No Information Instructions Date Instruction Additional Infor mation rioght tkr doing wel l injeciton given right knee Related to Chronic pain of right knee Disease process Assessments Type Assessment Date assessment Chronic pain of right knee Mental Status Date Cognitive Assessment Orientation - [place] ed to time, place, person, situation. Patient Care Teams Name Effective Dates (start - stop) Status Members No Information
--- OUTSIDE RECORDS SUMMARY | 2024-07-26 14:52 | XMS_ITS | Referral Summary ---
Author Organization [facility] Address [address] [address] Care Team Providers Care Radiologist Chief Of Breast Imaging Name Role Phone Bianca Booth MD Primary Care Provider Source Comments [facility],non-[facility] Affiliates and Associated Physician Practices is amultiple site organization consisting of ambulatory clinics and hospital sitesin [place], [place], [place] and [place]. This disclosure is being madepursuant to the Care Everywhere program and may not contain all information available regarding this patient. Last updated 18.[facility] Allergies Active Allergy Reactions Criticality Noted Date [...] mouth at bedtime. Active Cholecalciferol (VITAMIN D3) 28160 UNIT CAPS Take by mouth 2 times [...] Administration Dates Next Due PNEUMOCOCCAL PPSV23 10/01/2011 Social History Tobacco Use Types Packs/Day Years [...] 09/29/2011 6:55 AM CDT Plan of Treatment Not on file Administered Medications Advance Directives Documents on File Type Date Recorded Patient Crown Ironer Expl anation Adv Directive/Living Will/POA 07/10/2011 9:58 AM * FULL RESUSCITATION (Latest Code Status on File) Date Activated Date Inactivated Comments 07/07/2011 10:45 AM 07/10/2011 12:21 AM Care Teams Radiologist Chief Of Breast Imaging Relationship Specialty Start Date End Date Bianca Booth MD [address] [place] [phone] PCP - General 06/21/11
--- OUTSIDE RECORDS SUMMARY | 2024-07-26 14:52 | XMS_ITS | Patient Health Summary ---
Author Organization [facility] Address [address] [place] [address] Care Team Providers Care Flying Ii Instructor Name Role Phone Bianca Booth MD Primary Care Provider Note from [facility],non-owned Affiliates and Associated Physician Practices is amultiple site organization consisting of ambulatory clinics and hospital sitesin [place], [place], [place] and [place]. This disclosure is being madepursuant to the Care Everywhere program and may not contain all information available regarding this patient. Last updated 18.[facility] [place] Allergies * Hydrocodone(Dizzy and palpitations) Medications * Be aware that medications may not be up to date on this document. Alwaysverify current medications with the patient. * triamterene-hydrochlorothiazide (DYAZIDE) 37.5-25 MG capsule Take 1 Cap by mouth once daily. * rosuvastatin (CRESTOR) 5 MG tablet Take 5 mg by mouth at bedtime. * Cholecalciferol (VITAMIN D3) 66517 UNIT CAPS Take by mouth 2 times daily. * HYALURONIC ACID-VITAMIN C PO Take by mouth once daily. * vitamin E (TOCOPHERYL) 400 UNIT tablet Take by mouth 2 times daily. Instructed patient to stop 1 week before surgery. * Flaxseed, Linseed, (FLAXSEED OIL PO) Take by mouth 2 times daily. * omeprazole (PRILOSEC) 40 MG capsule Take 40 mg by mouth as needed. * GLUCOSAMINE CHONDROITIN COMPLX PO Take by mouth. * aspirin 325 MG tablet(Started 09/30/2011) Take 1 Tab by mouth 2 times daily. * oxycodone-acetaminophen (PERCOCET) 10-325 MG tablet(Started 10/01/2011) Take 1 Tab by mouth every 4 hours as needed for Pain. Active Problems Problem Noted Date Diagnosed Date Primary localized osteoarthrosis, lower leg DJD R KNEE 09/08/2011 S/P total knee replacement LEFT TKR ON 07/07/11 Aftercare following joint replacement L TKR 08/03/2011 S/P total knee replacement 07/28/2011 Immunizations * PNEUMOCOCCAL PPSV23(Given 10/01/2011) Social History Tobacco Use Types Packs/Day Years [...] Mass Index 28.46 09/29/2011 6:55 AM CDT Procedures * XR KNEE RIGHT 2VW OR LESS(Performed 10/20/2011) Performed for S/P total knee replacement * IP CONSULT TO HOME HEALTH CARE(Performed 10/01/2011) * HGB HCT PANEL(Performed 10/01/2011) * BASIC METABOLIC PANEL (CALCIUM TOTAL)(Performed 09/30/2011) * HGB HCT PANEL(Performed 09/30/2011) * CULTURE MSSA/MRSA(Performed 09/08/2011) Performed for Preoperative examination, unspecified * XR KNEE LEFT 2VW OR LESS(Performed 07/28/2011) Performed for S/P total knee replacement LEFT TKR ON 07/07/11 * CARDIAC EKG ORDER(Performed 07/10/2011) * IP CONSULT TO HOME HEALTH CARE(Performed 07/09/2011) * HGB HCT PANEL(Performed 07/09/2011) * HGB HCT PANEL(Performed 07/08/2011) * IP CONSULT TO HOSPITALIST(Performed 07/07/2011) * CARDIAC EKG ORDER(Performed 06/23/2011) * URINALYSIS REFLEX MICROSCOPIC REFLEX CULTURE(Performed 06/21/2011) Performed for Preoperative examination, unspecified * BASIC METABOLIC PANEL (CALCIUM TOTAL)(Performed 06/21/2011) Performed for Preoperative examination, unspecified * HGB HCT PANEL(Performed 06/21/2011) Performed for Preoperative examination, unspecified * CULTURE MSSA/MRSA(Performed 06/21/2011) Performed for Preoperative examination, unspecified * XR KNEE BILAT STANDING 1VW(Performed 06/11/2011) Performed for DJD (degenerative joint disease) of knee Results * XR KNEE 1 OR 2 VW RIGHT (10/20/2011 3:59 PM CDT) Anatomical Region Laterality Modality Lower Extremity Other Narrative 10/20/2011 3:59 PM CDT Lilian De Jesus 10/20/2011 3:59 PM Please see progress notes for result. Procedure Note Lilian De Jesus - 10/20/2011 3:59 PM CDT Please see progress notes for result. Velma Bran MD DIAGNOSTIC IMAGING O RDERABLES * IP CONSULT TO HOME CARE (10/01/2011 11:24 AM CDT) Only the most recent of2 resultswithin the time period is included. Narrative Katelin Sofia LPN - 10/01/2011 11:24 AM CDT Katelin Sofia LPN 10/01/2011 11:24 AM CONSULT NOTED, SPOKE WITH PATIENT, [facility] OK TO FOLLOW AT DISCHARGE THANK YOU FOR THE REFERRAL Katelin Sofia CORPORATE EXECUTIVE [facility] Advertising Account Representative Procedure Note Katelin Sofia LPN - 10/01/2011 11:24 AM CDT CONSULT NOTED, SPOKE WITH PATIENT, [facility] OK TO FOLLOW ATDISCHARGE THANK YOU FOR THE REFERRAL Katelin Sofia CORPORATE EXECUTIVE [facility] Advertising Account Representative Velma Bran MD INPATIENT ANCILLARY CONSULT * (ABNORMAL) HGB HCT PANEL (10/01/2011 5:10 AM CDT) Only the most recent of5 resultswithin the time period is included. Hemoglobin 9.1(L) 12.0 - 16.0 gm/dl [facility] Hematocrit 28.0(L) 36.0 - 48.0 % [facility] Blood specimen (specimen) BLOOD SPECIMEN / Unknown 10/01/2011 5:10 AM CDT 10/01/2011 5:13 AM CDT Velma Bran MD LAB - HEMATOLOGY ORD ERABLES Performing Organization Address [facility] Co de Phone Number [facility] [address] [place] [address] * (ABNORMAL) BASIC METABOLIC PANEL (CALCIUM TOTAL) (09/30/2011 3:37 AM CDT) Only the most recent of2 resultswithin the time period is included. Pathologist [facility] BUN 20 7.0 - 21.0 mg/dL [facility] Sodium 139 136 - 145 mmol/L [facility] Potassium 4.6 3.5 - 5.1 mmol/L [facility] Chloride 101 98.0 - 107.0 mmol/L [facility] CO2 29 22.0 - 30.0 mmol/L [facility] Anion Gap 9.0 [facility] Glucose 151(H) 74 - 106 mg/dL [facility] Creatinine 0.90 0.5 - 1.3 mg/dL [facility] Calcium 8.1(L) 8.5 - 10.1 mg/dL [facility] eGFR by MDRD 61 mL/min/1.7 3m2 [facility] Blood specimen (specimen) BLOOD SPECIMEN / Unknown 09/30/2011 3:37 AM CDT 09/30/2011 3:47 AM CDT Velma Bran MD LAB - CHEMISTRY ORDE RABCANDY Performing Organization Address [facility] Co de Phone Number [facility] [address] [place] [address] * CULTURE MSSA/MRSA (09/08/2011 4:35 PM CDT) Only the most recent of2 resultswithin the time period is included. Result [facility] Comment: Final CULTURE NO growth S.aureus/NO growth S.aureus (MRSA) SPECIMEN FROM NASAL FOSSAE / Unknown 09/08/2011 4:35 PM CDT 09/08/2011 4:35 PM CDT Narrative Resulting Agency Comment Performed By [facility];[address];[place] [address] Velma Bran MD LAB - MICROBIOLOGY O RDERABLES [facility] [address] [place] [address] * XR KNEE 1 OR 2 VW LEFT (07/28/2011 1:13 PM HOSPITAL SUPERVISOR) Anatomical Region Laterality Modality Lower Extremity Other Narrative 07/28/2011 1:13 PM HOSPITAL SUPERVISOR Lilian De Jesus 07/28/2011 1:13 PM Please see progress notes for result. Procedure Note Lilian De Jesus - 07/28/2011 1:13 PM CST Please see progress notes for result. Velma Bran MD DIAGNOSTIC IMAGING O RDERABLES * CARDIAC EKG ORDER (07/10/2011 10:18 AM HOSPITAL SUPERVISOR) Only the most recent of2 resultswithin the time period is included. Narrative Transcriptions Document, Scanned - 07/10/2011 10:18 AM CST Scanned Document CARDIAC SERVICES ORD ERABLES * IP CONSULT TO HOSPITALIST (07/07/2011 1:30 PM HOSPITAL SUPERVISOR) Narrative Jenifer Hummel MD - 07/07/2011 1:30 PM HOSPITAL SUPERVISOR Jenifer Hummel MD 07/07/2011 1:30 PM Seen and examined Full note to follow A/p djd knee Dyslipidemia HTN GERD Snoring dvt ppx [id number] Procedure Note Jenifer Hummel MD - 07/07/2011 1:25 PM CST Seen and examined Full note to follow A/p djd knee Dyslipidemia HTN GERD Snoring dvt ppx [id number] Velma Bran MD INPATIENT CONSULT OR DERABLES * URINALYSIS ROUTINE W/REFLEX TO CULTURE (06/21/2011 2:00 PM HOSPITAL SUPERVISOR) Color UA YELLOW [facility] Character UA CLEAR [facility] Specific Ajo UA 1.023 1.005 - 1.0300 [facility] pH UA 5.0 4.6 - 8.0 pH Units [facility] Leukocyte UA NEGATIVE Negative /ul [facility] Nitrite UA NEGATIVE Negative [facility] Protein UA NEGATIVE Negative mg/dl [facility] Glucose UA NEGATIVE Normal mg/dl [facility] Ketone UA NEGATIVE Negative mg/dl [facility] Urobilinogen UA 0.2 Normal Elyssa Units [facility] Bilirubin UA NEGATIVE Negative mg/dl [facility] Blood UA NEGATIVE Negative /ul [facility] WBC UA 0-2 <5 /HPF [facility] RBC UA 0-2 <5 /HPF [facility] Epithelial Cell UA 0-2 <5 /HPF [facility] Casts UA 0-2 <2 /LPF [facility] Bacteria UA NEGATIVE [facility] Urine Culture No culture to be done per protocol. [facility] Urine specimen (specimen) URINE SPECIMEN OBTAINED BY CLEAN CATCH PROCEDURE / Unknown 06/21/2011 2:00 PM HOSPITAL SUPERVISOR 06/21/2011 2:44 PM HOSPITAL SUPERVISOR Velma Bran MD LAB - URINALYSIS ORD ERABLES [facility] [address] [place] [address] * XR KNEES AP BILATERAL STANDING (06/11/2011 2:50 PM HOSPITAL SUPERVISOR) Anatomical Region Laterality Modality Lower Extremity Other Narrative 06/11/2011 2:50 PM HOSPITAL SUPERVISOR RT Cristian 06/11/2011 2:50 PM Please see office note for result. Procedure Note Ashley Modi, - 06/11/2011 2:49 PM CST Please see office note for result. Velma Bran MD DIAGNOSTIC IMAGING O RDERABLES Care Teams Flying Ii Instructor Relationship Specialty Start Date End Date Bianca Booth MD [address] [place] [phone] [facility] - General 06/21/11
--- OUTSIDE RECORDS SUMMARY | 2024-07-26 15:14 | XMS_ITS | Patient Health Summary ---
Author Organization [facility] Address [address] [place] [address] Care Team Providers Care Pilot Boat Deckhand Name Role Phone Bianca Booth MD Primary Care Provider Note from [facility],non-owned Affiliates and Associated Physician Practices is amultiple site organization consisting of ambulatory clinics and hospital sitesin [place], [place], [place] and [place]. This disclosure is being madepursuant to the Care Everywhere program and may not contain all information available regarding this patient. Last updated 18.[facility] [place] Allergies * Hydrocodone(Dizzy and palpitations) Medications * Be aware that medications may not be up to date on this document. Alwaysverify current medications with the patient. * triamterene-hydrochlorothiazide (DYAZIDE) 37.5-25 MG capsule Take 1 Cap by mouth once daily. * rosuvastatin (CRESTOR) 5 MG tablet Take 5 mg by mouth at bedtime. * Cholecalciferol (VITAMIN D3) 11728 UNIT CAPS Take by mouth 2 times [...] THANK YOU FOR THE REFERRAL Katelin Sofia FAMILY PRACTICE MEDICAL DOCTOR [facility] Sewing Machine Repairer Helper Procedure Note Katelin Sofia LPN - 10/01/2011 11:24 AM CDT CONSULT NOTED, SPOKE WITH PATIENT, [facility] OK TO FOLLOW ATDISCHARGE THANK YOU FOR THE REFERRAL Katelin Sofia FAMILY PRACTICE MEDICAL DOCTOR [facility] Sewing Machine Repairer Helper Velma Bran MD INPATIENT ANCILLARY CONSULT * (ABNORMAL) HGB HCT PANEL (10/01/2011 5:10 AM CDT) Only the most recent of5 resultswithin the time period is included. Hemoglobin 9.1(L) 12.0 - 16.0 gm/dl [facility] Hematocrit 28.0(L) 36.0 - 48.0 % [facility] Blood specimen (specimen) BLOOD SPECIMEN / Unknown 10/01/2011 5:10 AM CDT 10/01/2011 5:13 AM CDT Velma Bran MD LAB - HEMATOLOGY ORD ERABLES Performing Organization Address [facility] Co de Phone Number [facility] [address] [place] [address] * (ABNORMAL) BASIC METABOLIC PANEL (CALCIUM TOTAL) (09/30/2011 3:37 AM CDT) Only the most recent of2 resultswithin the time period is included. Pathologist [facility] BUN 20 7.0 - 21.0 mg/dL [facility] Sodium 139 136 - 145 mmol/L [facility] Potassium 4.6 3.5 - 5.1 mmol/L [facility] Chloride 101 98.0 - 107.0 mmol/L [facility] CO2 29 22.0 - 30.0 mmol/L [facility] Anion Gap 9.0 [facility] Glucose 151(H) 74 - 106 mg/dL [facility] Creatinine 0.90 0.5 - 1.3 mg/dL [facility] Calcium 8.1(L) 8.5 - 10.1 mg/dL [facility] eGFR by MDRD 61 mL/min/1.7 3m2 [facility] Blood specimen (specimen) BLOOD SPECIMEN / Unknown 09/30/2011 3:37 AM CDT 09/30/2011 3:47 AM CDT Velma Bran MD LAB - CHEMISTRY ORDE RABCANDY Performing Organization Address [facility] Co de Phone Number [facility] [address] [place] [address] * CULTURE MSSA/MRSA (09/08/2011 4:35 PM CDT) Only the most recent of2 resultswithin the time period is included. Result [facility] Comment: Final CULTURE NO growth S.aureus/NO growth S.aureus (MRSA) SPECIMEN FROM NASAL FOSSAE / Unknown 09/08/2011 4:35 PM CDT 09/08/2011 4:35 PM CDT Narrative Resulting Agency Comment Performed By [facility];[address];[place] [address] Velma Bran MD LAB - MICROBIOLOGY O RDERABLES [facility] [address] [place] [address] * XR KNEE 1 OR 2 VW LEFT (07/28/2011 1:13 PM ARTILLERY OFFICER) Anatomical Region Laterality Modality Lower Extremity Other Narrative 07/28/2011 1:13 PM ARTILLERY OFFICER Lilian De Jesus 07/28/2011 1:13 PM Please see progress notes for result. Procedure Note Lilian De Jesus - 07/28/2011 1:13 PM CST Please see progress notes for result. Velma Bran MD DIAGNOSTIC IMAGING O RDERABLES * CARDIAC EKG ORDER (07/10/2011 10:18 AM ARTILLERY OFFICER) Only the most recent of2 resultswithin the time period is included. Narrative Transcriptions Document, Scanned - 07/10/2011 10:18 AM CST Scanned Document CARDIAC SERVICES ORD ERABLES * IP CONSULT TO HOSPITALIST (07/07/2011 1:30 PM ARTILLERY OFFICER) Narrative Jenifer Hummel MD - 07/07/2011 1:30 PM ARTILLERY OFFICER Jenifer Hummel MD 07/07/2011 1:30 PM Seen and examined Full note to follow A/p djd knee Dyslipidemia HTN GERD Snoring dvt ppx [id number] Procedure Note Jenifer Hummel MD - 07/07/2011 1:25 PM CST Seen and examined Full note to follow A/p djd knee Dyslipidemia HTN GERD Snoring dvt ppx [id number] Velma Bran MD INPATIENT CONSULT OR DERABLES * URINALYSIS ROUTINE W/REFLEX TO CULTURE (06/21/2011 2:00 PM ARTILLERY OFFICER) Color UA YELLOW [facility] Character UA CLEAR [facility] Specific [place] UA 1.023 1.005 - 1.0300 [facility] pH UA 5.0 4.6 - 8.0 pH Units [facility] Leukocyte UA NEGATIVE Negative /ul [facility] Nitrite UA NEGATIVE Negative [facility] Protein UA NEGATIVE Negative mg/dl [facility] Glucose UA NEGATIVE Normal mg/dl [facility] Ketone UA NEGATIVE Negative mg/dl [facility] Urobilinogen UA 0.2 Normal Elyssa Units [facility] Bilirubin UA NEGATIVE Negative mg/dl [facility] Blood UA NEGATIVE Negative /ul [facility] WBC UA 0-2 <5 /HPF [facility] RBC UA 0-2 <5 /HPF [facility] Epithelial Cell UA 0-2 <5 /HPF [facility] Casts UA 0-2 <2 /LPF [facility] Bacteria UA NEGATIVE [facility] Urine Culture No culture to be done per protocol. [facility] Urine specimen (specimen) URINE SPECIMEN OBTAINED BY CLEAN CATCH PROCEDURE / Unknown 06/21/2011 2:00 PM ARTILLERY OFFICER 06/21/2011 2:44 PM ARTILLERY OFFICER Velma Bran MD LAB - URINALYSIS ORD ERABLES [facility] [address] [place] [address] * XR KNEES AP BILATERAL STANDING (06/11/2011 2:50 PM ARTILLERY OFFICER) Anatomical Region Laterality Modality Lower Extremity Other Narrative 06/11/2011 2:50 PM ARTILLERY OFFICER RT Cristian 06/11/2011 2:50 PM Please see office note for result. Procedure Note Ashley Modi, - 06/11/2011 2:49 PM CST Please see office note for result. Velma Bran MD DIAGNOSTIC IMAGING O RDERABLES Care Teams Pilot Boat Deckhand Relationship Specialty Start Date End Date Bianca Booth MD [address] [place] [phone] [facility] - General 06/21/11
--- OUTSIDE RECORDS SUMMARY | 2024-07-26 15:14 | XMS_ITS | Clinical Summary ---
Author Organization [facility] [employer] Address [address] [place] [address] Care Team Providers Care Dump Motorman Name Role Phone Bianca Booth MD Primary Care Provider Source Comments [facility],non-[facility] Affiliates and Associated Physician Practices is amultiple site organization consisting of ambulatory clinics and hospital sitesin [place], [place], [place] and [place]. This disclosure is being madepursuant to the Care Everywhere program and may not contain all information available regarding this patient. Last updated 18.[facility] Allergies Active Allergy Reactions Criticality Noted Date [...] mouth at bedtime. Active Cholecalciferol (VITAMIN D3) 81567 UNIT CAPS Take by mouth 2 times [...] Documents on File Type Date Recorded Patient Spanish Language Lecturer Expl anation Adv Directive/Living Will/POA 07/10/2011 9:58 AM * FULL RESUSCITATION (Latest Code Status on File) Date Activated Date Inactivated Comments 07/07/2011 10:45 AM 07/10/2011 12:21 AM Care Teams Dump Motorman Relationship Specialty Start Date End Date Bianca Booth MD [address] [place] [address] [address] [place] [phone] PCP - General 06/21/11
--- OUTSIDE RECORDS SUMMARY | 2024-07-26 15:14 | XMS_ITS | Continuity of Care Document ---
Author Organization [facility] Address [address] [facility] [address] [place] [address] Phone Care Team Providers Care Strip Deburrer Name Role Phone Sarah Hai Unavailable Unavailable Procedures Procedure Date Eye Exam, New Patient Refraction Advance Directives Directive Yes / No Effective Date File Name No Information Encounters Encounter Description Practice Location Reason(s) For Visit Diagnoses Date Provider Providers Copied on Encounter [facility], [address], [place], [place], [id number], [place] tel:[phone] [facility] No Information 3-201 0 Sarah Betten[address]ourthil. [address], [place], [address], [place]. tel:[phone] Family History Family Member Type Diagnosis Age At Onset No Information Payers Payer name Insurance type Covered democrat ID Authoriza tion(s) No Information Social History [...]
--- OUTSIDE RECORDS SUMMARY | 2024-07-26 15:14 | XMS_ITS | Continuity of Care Document ---
Author Organization [facility] Address [address] [place] [address] Phone Care Team Providers Care Hall Tender Name Role Phone Velma Bran MD Unavailable Unavailable Allergies, Adverse Reactions, Alerts Substance Reaction Status Criticality No Known Allergies Active No Inform ation Procedures Procedure Date X-RAY EXAM OF KNEE, A/P & LAT KENALOG 10 MG ASP/INJ MAJOR JOINTOR BURSA, SHOULDER, H IP,KNEE W/O US GUIDANCE OFFICE [id number] Advance Directives Directive Yes / No Effective Date File Name No Information Encounters Encounter Description Practice Location Reason(s) For Visit Diagnoses Date Provider Providers Copied on Encounter OFFICE [facility], [address], [place], [place], [id number], [place] tel:[phone] [facility] RT Knee (chief complaint) Chronic pain of right knee Shant Carreon. Doc [address], [address] [facility] [address], [place], [place], [id number], [place]. tel:[phone] Referring Provider: Doc Donaldson Dr [address] [address], [place], [address]. tel:[phone] Family History Family Member Type Diagnosis Age At Onset No Information Payers Payer name Insurance type Covered constitution party ID Authoriza tion(s) [employer] [place] [place] [id number] Social History Type Description Quantity Date Captured [...] Mental Status Date Cognitive Assessment Orientation - [place] ed to time, place, person, situation. Patient Care Teams Name Effective Dates (start - stop) Status Members No Information
--- OUTSIDE RECORDS SUMMARY | 2024-07-26 15:14 | XMS_ITS | Referral Summary ---
Author Organization [facility] [employer] Address [address] [place] [address] Care Team Providers Care Float Tender Name Role Phone Bianca Booth MD Primary Care Provider Source Comments [facility] [employer],non-[facility] Affiliates and Associated Physician Practices is amultiple site organization consisting of ambulatory clinics and hospital sitesin [place], [place], [place] and [place]. This disclosure is being madepursuant to the Care Everywhere program and may not contain all information available regarding this patient. Last updated 18.[facility] [employer] Allergies Active Allergy Reactions Criticality Noted Date [...] mouth at bedtime. Active Cholecalciferol (VITAMIN D3) 85793 UNIT CAPS Take by mouth 2 times [...] Documents on File Type Date Recorded Patient Hvac Estimator Expl anation Adv Directive/Living Will/POA 07/10/2011 9:58 AM * FULL RESUSCITATION (Latest Code Status on File) Date Activated Date Inactivated Comments 07/07/2011 10:45 AM 07/10/2011 12:21 AM Care Teams Float Tender Relationship Specialty Start Date End Date Bianca Booth MD [address] [place] [phone] PCP - General 06/21/11
--- OUTSIDE RECORDS SUMMARY | 2024-07-26 15:14 | XMS_ITS | Clinical Summary ---
Author Organization [facility] Care Team Providers Care Boiler Repair Supervisor Name Role Phone Unavailable Primary Care Provider [...]
[2024-07-26 15:51] LABS: Alanine Aminotransferase 23 U/L (6-35); Albumin Level 4.3 g/dL (3.5-5.1); Alkaline Phosphatase 88 U/L (38-126); Anion Gap 9 mmol/L (4-12); Aspartate Amino Transferase 38 U/L (14-36); Bilirubin,Total 0.5 mg/dL (0.2-1.3); Blood Urea Nitrogen 17 mg/dL (7-17); Calcium 9.2 mg/dL (8.4-10.2); Carbon Dioxide 28 mmol/L (22-30); Chloride 104 mmol/L (98-107); Estimated Glomerular Filt Rate > 60; Glucose 88 mg/dL (65-110); Potassium 3.8 mmol/L (3.4-5.0); Sodium 141 mmol/L (137-145)
[2024-07-26 16:34] LABS: Cholesterol 174 mg/dL (0-200); HDL Direct 60 mg/dL; Triglycerides 124 mg/dL (<150)
[2024-07-26 16:41] LABS: Creatinine Urine 91.3 mg/dL
[2024-07-26 16:44] LABS: Hemoglobin A1C 6.9 % (<5.7)
[2024-07-26 16:45] LABS: LDL Cholesterol Direct 87 mg/dL
[2024-07-26 16:46] LABS: MALB Creatinine Ratio 51.5 mg/g (0-30)
== END 2024-07-26 15:13 | disposition home or self-care (01) ==
PROVIDERS: PCP Family Medicine; Visit Provider Physician Assistant
DX: E78.5 Hyperlipidemia, unspecified (principal); I10 Essential (primary) hypertension; E11.9 Type 2 diabetes mellitus without complications
CPT/HCPCS: 36415; 80053; 80061; 82043; 83036

== ENCOUNTER 2024-08-09 12:56 | Outpatient (CLI) | payer MEDICARE, SELFPAY ==
--- NOTE | ~2024-08-09 | MM_ITS ---
EXAMINATION: MM diagnostic debra LT w colton HISTORY: Left breast lump, now resolved TECHNIQUE: 3-D tomosynthesis images of the left breast were performed and synthetic 2-D images were g enerated. CAD analysis was submitted and interpreted. COMPARISON: 05/17/2024, 02/17/2021 BREAST PARENCHYMAL COMPOSITION:Not Dense. There are scattered areas of fibroglandular density. FINDINGS: Parenchymal pattern of the left breast is unchanged. No suspicious mass lesion or distortio n. No suspicious microcalcification. IMPRESSION: No mammographic evidence for malignancy. BI-RADS Category 1: Negative Reviewed, dictated and finalized at location . TS SPECIALIST
--- OUTSIDE RECORDS SUMMARY | 2024-08-09 14:14 | XMS_ITS | Clinical Summary ---
Author Organization [facility] Address [address] [place] [address] Care Team Providers Care Constitutional Law Professor Name Role Phone Bianca Booth MD Primary Care Provider Source Comments [facility],non-[facility] Affiliates and Associated Physician Practices is amultiple site organization consisting of ambulatory clinics and hospital sitesin [place], [place], [place] and [place]. This disclosure is being madepursuant to the Care Everywhere program and may not contain all information available regarding this patient. Last updated 18.[facility] Allergies Active Allergy Reactions Criticality Noted Date [...] mouth at bedtime. Active Cholecalciferol (VITAMIN D3) 85937 UNIT CAPS Take by mouth 2 times [...] Documents on File Type Date Recorded Patient Corsage Maker Expl anation Adv Directive/Living Will/POA 07/10/2011 9:58 AM * FULL RESUSCITATION (Latest Code Status on File) Date Activated Date Inactivated Comments 07/07/2011 10:45 AM 07/10/2011 12:21 AM Care Teams Constitutional Law Professor Relationship Specialty Start Date End Date Bianca Booth MD [address] [place] [address] [address] [place] [address] PCP - General 06/21/11
--- OUTSIDE RECORDS SUMMARY | 2024-08-09 14:14 | XMS_ITS | Referral Summary ---
Author Organization [facility] [employer] Address [address] [place] [address] Care Team Providers Care Vascular Radiologist Name Role Phone Bianca Booth MD Primary Care Provider Source Comments [facility] [employer],non-[facility] Affiliates and Associated Physician Practices is amultiple site organization consisting of ambulatory clinics and hospital sitesin [place], [place], [place] and [place]. This disclosure is being madepursuant to the Care Everywhere program and may not contain all information available regarding this patient. Last updated 18.[facility] [employer] Allergies Active Allergy Reactions Criticality Noted Date [...] mouth at bedtime. Active Cholecalciferol (VITAMIN D3) 35920 UNIT CAPS Take by mouth 2 times [...] Documents on File Type Date Recorded Patient Chief Writer Expl anation Adv Directive/Living Will/POA 07/10/2011 9:58 AM * FULL RESUSCITATION (Latest Code Status on File) Date Activated Date Inactivated Comments 07/07/2011 10:45 AM 07/10/2011 12:21 AM Care Teams Vascular Radiologist Relationship Specialty Start Date End Date Bianca Booth MD [address] [place] [phone] PCP - General 06/21/11
--- OUTSIDE RECORDS SUMMARY | 2024-08-09 14:14 | XMS_ITS | Continuity of Care Document ---
Author Organization [facility] Address [address] [facility] [address]ive [facility] [address] [place] [address] Phone Care Team Providers Care Bead Wire Taper Name Role Phone Jeremiquique Hai Unavailable Unavailable Procedures Procedure Date Eye Exam, New Patient Refraction Advance Directives Directive Yes / No Effective Date File Name No Information Encounters Encounter Description Practice Location Reason(s) For Visit Diagnoses Date Provider Providers Copied on Encounter [facility], [address], [place], [place], [id number], [place] tel:[phone] [facility] No Information 3-201 0 Sarah Betten[address]our[address]il. [address], [place], [address], [place]. tel:[phone] Family History Family Member Type Diagnosis Age At Onset No Information Payers Payer name Insurance type Covered alliance party ID Authoriza tion(s) No Information Social History [...]
--- OUTSIDE RECORDS SUMMARY | 2024-08-09 14:14 | XMS_ITS | Continuity of Care Document ---
Author Organization [facility] Address [address] [place] [address] Phone Care Team Providers Care Vet Tech Name Role Phone Velma Bran MD Unavailable Unavailable Allergies, Adverse Reactions, Alerts Substance Reaction Status Criticality No Known Allergies Active No Inform ation Procedures Procedure Date X-RAY EXAM OF KNEE, A/P & LAT KENALOG 10 MG ASP/INJ MAJOR JOINTOR BURSA, SHOULDER, H IP,KNEE W/O US GUIDANCE OFFICE [id number] Advance Directives Directive Yes / No Effective Date File Name No Information Encounters Encounter Description Practice Location Reason(s) For Visit Diagnoses Date Provider Providers Copied on Encounter OFFICE [id number] ILEBruna [facility], [address], [place], [place], [address], [place] tel:[phone] [facility] Knee (chief complaint) Chronic pain of right knee Shant Carreon. Doc [address], [facility] [address], [place], [place], [address], [place]. tel:[phone] Referring Provider: Doc D[address] Dr [facility] [address], [place], [address]. tel:[phone] Family History Family Member Type Diagnosis Age At Onset No Information Payers Payer name Insurance type Covered democrat ID Authoriza tion(s) [facility] [employer] PPO MB [id number] Social History Type Description Quantity Date Captured [...] Mental Status Date Cognitive Assessment Orientation - [place] ed to time, place, person, situation. Patient Care Teams Name Effective Dates (start - stop) Status Members No Information
--- OUTSIDE RECORDS SUMMARY | 2024-08-09 14:14 | XMS_ITS | Patient Health Record ---
Author Organization [facility] Address [address] [place] [address] Care Team Providers Care Public Health Engineer Name Role Phone Dr. Kristi Martin Primary Care Provider Un available Zulema Malik Unavailable [phone] Dr. Shai Jj Unavailable [phone] Allergies No Known Allergies Reason For Referral No Information Medications Medication SIG (Take, Route, Frequency, Duration) Notes Start Date End Date Status hydrALAZINE HCl 25 MG TAKE 1 TABLET BY M OUTH THREE TIMES DAILY Oral for 30 Days Active Atorvastatin Calcium 10 MG TAKE 1 TABLET BY MOUTH EVERY OTHER DAY Oral for 100 Days Active clonazePAM 0.5 MG Oral for 30 Days Active Cetirizine HCl 10 MG 1 tablet Orally Onc e a day for 30 days 12/14/2023 Active Azelastine HCl 137 MCG/SPRAY 2 sprays in each nostril Nasally Twice a day for 30 days 12/14/2023 Active Social History Tobacco Use: Social History Observation Description Date Details (start date - stop date) Never Smoker NA - NA Tobacco Control (Standard) Question Answer Notes Tobacco use: Nonsmoker Section Notes: lives with her son on [address] [place] with her son [place] [address] [place] Problems Problem Type SNOMED Code ICD Code Onset Dates Problem Status W/U Status Risk Notes Problem Chronic migraine without aura, non-refractory (disorder) (567341915854559) Migraine without aura, not intractable, without status migrainosus (G43.009) Active confirmed Problem Migraine with aura (6343724) Migraine with aura, not intractable, without status migrainosus (G43.109) Active confirmed Problem Chronic migraine without aura, non-intractable (316113465501000) Chronic migraine without aura, not intractable, without status migrainosus (G43.709) Active confirmed Problem Chronic allergic conjunctivitis (89818306) Other chronic allergic conjunctivitis (H10.45) Active confirmed Problem Allergic rhinitis caused by pollen (disorder) (05021814) Allergic rhinitis due to pollen (J30.1) Active confirmed Problem Allergic rhinitis (67402321) Other allergic rhinitis (J30.89) Active confirmed Problem Chronic rhinitis (21207673) Chronic rhinitis (J31.0) Active confirmed Problem Uncomplicated mild persistent asthma (807290211) Mild persistent asthma, uncomplicated (J45.30) Active confirmed Problem Uncomplicated moderate persistent asthma (538621259) Moderate persistent asthma, uncomplicated (J45.40) Active confirmed Problem Uncomplicated severe persistent asthma (886157669) Severe persistent asthma, uncomplicated (J45.50) Active confirmed Problem Allergic rhinitis caused by animal hair and dander (987727179238733) Allergic rhinitis due to animal (cat) (dog) hair and dander (J30.81) Active confirmed Vital Signs Oximetry 95 % 12/14/2023 Blood pressure diastolic 79 mm Hg 12/14/2023 Height 61 in 12/14/2023 Blood pressure systolic 169 mm Hg 12/14/2023 Weight 176.2 lbs 12/14/2023 BMI 33.29 kg/m2 12/14/2023 Encounters Encounter Location Date Provider Diagnosis [facility] [address] [place] [phone] 12/14/2023 Zulema Malik Chronic rhinitis J31.0 and Headache, unspecified R51.9 Assessments Encounter Date Diagnosis (ICD Code) Assessment Notes Treatment Notes Treatment Clinical Notes Section Notes 12/14/2023 Chronic rhinitis (ICD-10 - J31.0) Given the history and symptoms, skin testing was performed to common aeroallergens to determine atopic status. Skin testing today was negative for aeroallergens. Skin testing was also negative at [facility] 3 years ago per her report. Sinus CT negative per ENT records. We discussed non allergic rhinitis including trigger factors of strong odors and changes in barometric pressure. Start a trial of Astelin and Cetirizine. Imaging was performed this am which was ordered by PCP. If no improvement, recommend evaluation for migraines by Dr. Jj. 12/14/2023 Headache, unspecified (ICD-10 - R51.9) 12/14/2023 Other Plan Of Treatment No Information Insurance Providers Payer Name Payer Address Payer Phone Subscriber Number Group Number Insured Name Patient Relationship to Insured Coverage Start Date Coverage End Date [facility] [employer] [address] [address] [place] [address] [id number] [facility] Self - patient is the insured 4 Medical (General) History Medical History History ICD Code Hypertension Surgical History Surgery Date(Month/Year) knee replacement 2008
--- OUTSIDE RECORDS SUMMARY | 2024-08-09 14:14 | XMS_ITS ---
Author Organization [facility] Address [address] [place] [address] Care Team Providers Care Drag Down Name Role Phone Dr. Kristi Martin Primary Care Provider Un available Zulema Malik Unavailable [phone] Dr. Shai Jj Unavailable [phone] REASON FOR VISIT Consult Headache Medications Medication SIG (Take, Route, Frequency, Duration) [...] Section Notes: lives with her son on [address] Problems Problem Type SNOMED Code ICD Code Onset Dates Problem Status W/U Status Risk Notes Problem Chronic migraine without aura, non-intractab le (041252894455 100) Chronic migraine without aura, not intractable, without status migrainosus (G43.709) Active confirmed Problem Migraine with aura (0081342) Migraine with aura, not intractable, without status migrainosus (G43.109) Active confirmed Problem Chronic migraine without aura, non-refractor y (disorder) (805521399276 100) Migraine without aura, not intractable, without status migrainosus (G43.009) Active confirmed Encounters Encounter Location Date Provider Diagnosis [facility] [address] [place] [address] 01/05/2024 Shai Jj Chronic migraine without aura, not intractable, without status migrainosus G43.709 ; Migraine with aura, not intractable, without status migrainosus G43.109 ; Migraine without aura, not intractable, without status migrainosus G43.009 and Drug-induced headache, not elsewhere classified, not intractable G44.40 Assessments Encounter Date Diagnosis (ICD Code) Assessment Notes Treatment Notes Treatment Clinical Notes Section Notes 01/05/2024 Chronic migraine without aura, not intractable, without status migrainosus (ICD-10 - G43.709) 01/05/2024 Migraine with aura, not intractable, without status migrainosus (ICD-10 - G43.109) 01/05/2024 Migraine without aura, not intractable, without status migrainosus (ICD-10 - G43.009) 01/05/2024 Drug-induced headache, not elsewhere classified, not intractable (ICD-10 - G44.40) Plan Of Treatment Next Appt Details Follow Up: 4 Weeks, Reason: Evaluation and Management Progress Notes * Sarah ARORA JDOB:02/1940 (84 yo F)Acc No.[id number]:01/05/2024 Progress Notes Patient: Sarah MCCARTHY Provider: Carmelita Jj MD :1940 A ge:83 Y S ex:Female Date:01/05/2024 Address:[address] [place], [place] [phone] Pcp:Dr. Kristi Martin Subjective: * Chief Complaints: * 1 . Consult Headache. * HPI: * Introduction: I had the pleasure of seeing Simin Arora, who presented for evaluation of headaches. H eadache History: - Headache Onset:-Headache Description: Prodrome: . Aura: . H eadache phase: . Postdrome: . - Headache Triggers: - Headache Frequency: The patient is currently experiencing Headache days/month and Migraine days/month. A ssociated Factors:-Stress/Mood: Patient denies high levels of stress, anxiety or depression symptoms-Sleep:? Patient denies sleep difficulty, snoring, or restless leg symptoms-Sinus/Allergy: Patient denies allergies or sinus pain-Cervical spine: Patient denies neck pain or myofascial pain - TMJ pain or jaw clenching: Patient denies TMJ pain or bruxism. - Hormones: Patient is postmenopausal. - Medication Overuse: Present/Not present - Caffeine Overuse: Present/Not present - Fluid intake: C urrent/Prior Migraine Treatment:-Current abortive therapy:-Previous failed abortive therapy:-Current preventive therapy:-Previous failed preventive therapy: - Other modalities: Chiropractic, Physical Therapy, Acupuncture, Biofeedback, Migraine devices P revious Imaging: H eadache Scales:MIDAS score: HIT-6 score: . * Mental Health: Depression Screening Scale P HQ-9 score: M ore than 5 minutes in spent in discussion regarding depression screening. Anxiety Screening Scale G AD-7 score:. * ROS: C ONSTITUTIONAL: Positive for P atient denies fevers, chills, sweats, unintended weight loss, loss of appetite, or chronic fatigue. E NT: Positive P atient denies ear fullness or pain or sinus pain. R ESPIRATORY: Positive for P atient denies shortness of breath or wheezing. O PHTHALMOLOGY: Positive for R eviewed and except as mentioned above in the HPI is negative. E NDOCRINOLOGY: Positive for P atient denies heat intolerance, cold intolerance, polyuria, elevated blood sugar, chronic fatigue. C ARDIOLOGY: Positive for P atient denies dizziness, palpitations, or chest pain. G ASTROENTEROLOGY: Positive for P atient denies diarrhea, melena, bloody stools, or abdominal pain. U ROLOGY: Positive for P atient denies urinary incontinence or urinary dysfunction. D ERMATOLOGY: Positive for P atient denies rash or hives. ? N EUROLOGY: Positive for R eviewed and except as mentioned above in the HPI is negative. H EMATOLOGY/LYMPH: Positive for P atient denies history of excessive bruising or bleeding diasthesis. M USCULOSKELETAL: Positive for P atient denies extremity joint pain or swelling. P SYCHOLOGY: Positive for R eviewed and except as discussed above in the HPI is otherwise negative. * Medical History: H ypertension. * Surgical History: k nee replacement 2008. * Family History: F ather: diagnosed with Cancer. M other: diagnosed with Diabetes. * Social History: H ome description Basement: N o Do you own any pets? N o T obacco Control (Standard) Tobacco use: N ge[place]amokj [place] with [place]. * Medications: T aking hydrALAZINE HCl 25 MG Tablet TAKE 1 TABLET BY MOUTH THREE TIMES DAILY Oral , Taking Atorvastatin Calcium 10 MG Tablet TAKE 1 TABLET BY MOUTH EVERY OTHER DAY Oral , Taking clonazePAM 0.5 MG Tablet Oral , Taking Cetirizine HCl 10 MG Tablet 1 tablet Orally Once a day , Taking Azelastine HCl 137 MCG/SPRAY Solution 2 sprays in each nostril Nasally Twice a day Objective: * Vitals: * Examination: G eneral examination: General appearance: P leasant, well-developed, no distress.? HEENT: P upils equal, round and reactive to light. No conjunctival injection. No tenderness to palpation over the maxillary sinuses. No turbinate hypertrophy. Tympanic membranes appear normal. No oral lesions. No tenderness over the occipital notch bilaterally. Oral cavity: N ormal, no lesions. Neck, thyroid : S upple, non-tender, no anterior cervical lymphadenopathy. Breasts : N ot performed. Heart: R RR, S1-S2, no murmurs, no rubs, no gallops. Lungs: C lear to auscultation and percussion in all lung strickland. Abdomen: S oft, NT/ND, normal active bowel sounds. Neurologic exam: A lert and oriented x 4. Fluent speech. Intact recall, fund of knowledge. Appropriate affect. PERRL. EOMI without nystagmus. No visual field cut. Facial sensation intact to light touch and pinprick in bilateral V1/V2/V3. Facial movements normal and symmetric. Hearing intact to finger rub bilaterally. Palate symmetrically upgoing. Tongue midline. Motor 5/5 strength in all extremities. Reflexes 2+/2 and symmetric in all extremities. Bilateral flexor plantar responses. Sensory exam intact to light touch, pinprick, vibration, and proprioception in all extremities. Cerebellar testing no ataxia or dysmetria. Gait normal, negative Romberg, intact tandem. Skin: N ormal, no rash, urticaria, angioedema. Peripheral pulses: n ormal (2+) bilaterally. Back: N o cervical or periscapular trigger points. Normal cervical and lumbar ROM. Extremities: N ormal ROM, no clubbing, no cyanosis, no edema. Genitalia: N ot performed. Assessment: * Assessment: 1. C hronic migraine without aura, not intractable, without status migrainosus - G43.709 (Primary) 2 . M igraine with aura, not intractable, without status migrainosus - G43.109 3 . M igraine without aura, not intractable, without status migrainosus - G43.009 4 . D rug-induced headache, not elsewhere classified, not intractable - G44.40 Plan: * Treatment: * Procedure Codes: G 0444 ANNUAL DEPRESSION SCREENING 5-15 MIN, G8427 DOC MEDS VERIFIED W/[place], [address] PT-FOCUSED HLTH RISK ASSMT * Follow Up: 4 Weeks (Reason: Evaluation and Management) * Billing Information: * Visit Code: 29287 Office Visit, New Pt., Level 4. Modifiers: 25 * Procedure Codes: G0444 ANNUAL DEPRESSION SCREENING 5-15 MIN. G8427 DOC MEDS VERIFIED W/[place]. [address] PT-FOCUSED HLTH RISK ASSMT. * Electronic signature of Dr. Shai Jj MD on 08/09/2024 at 02:14 PM DIRECTOR Sign off status: Pending * Provider: Carmelita Jj MD Date: 0 01/05/2024 Generated for Magno montgomery/Frederick/Ivette on: 0 08/09/2024 02:14 PM DIRECTOR History and Physical Notes * HPI (History of Present Illness) Category Sub-Category Detail Notes Category Not es *Introduction I had the pleasure o f seeing Sarah Arora, who presented for evaluation of headaches.Headache History: -Headache Onset:-Headache Description: Prodrome: . Aura: . Headache phase: . Postdrome: .-Headache Triggers:-Headache Frequency: The patient is currently experiencing Headache days/month and Migraine days/month.Associated Factors:-Stress/Mood: Patient denies high levels of stress, anxiety or depression symptoms-Sleep: Patient denies sleep difficulty, snoring, or restless leg symptoms-Sinus/Allergy: Patient denies allergies or sinus pain-Cervical spine: Patient denies neck pain or myofascial pain-TMJ pain or jaw clenching: Patient denies TMJ pain or bruxism.-Hormones: Patient is postmenopausal.-Medication Overuse: Present/Not present-Caffeine Overuse: Present/Not present-Fluid intake:Current/Prior Migraine Treatment:-Current abortive therapy:-Previous failed abortive therapy:-Current preventive therapy:-Previous failed preventive therapy:-Other modalities: Chiropractic, Physical Therapy, Acupuncture, Biofeedback, Migraine devicesPrevious Imaging:Headache Scales:MIDAS score: HIT-6 score: *Mental Health Depression Screening Scale PHQ-9 score: More than 5 minutes in spent in discussion regarding depression screening Anxiety Screening Scale MICA-7 score: Examination Category Sub-Category Detail Notes Category Not es General examination HEENT: Pupils equal , round and reactive to light. No conjunctival injection. No tenderness to palpation over the maxillary sinuses. No turbinate hypertrophy. Tympanic membranes appear normal. No oral lesions. No tenderness over the occipital notch bilaterally Neck, thyroid : Supple, non-tender, no anterior cervical lymphadenopathy Heart: RRR, S1-S2, no murmu rs, no rubs, no gallops Lungs: Clear to auscultatio n and percussion in all lung [place] Abdomen: Soft, NT/ND, normal active bowel sounds Extremities: Normal ROM, no clubb ing, no cyanosis, no edema General appearance: Pleasant, well-devel oped, no distress Skin: Normal, no rash, urt icaria, angioedema Neurologic exam: Alert and oriented x 4. Fluent speech. Intact recall, fund of knowledge. Appropriate affect. PERRL. EOMI without nystagmus. No visual field cut. Facial sensation intact to light touch and pinprick in bilateral V1/V2/V3. Facial movements normal and symmetric. Hearing intact to finger rub bilaterally. Palate symmetrically upgoing. Tongue midline. Motor 5/5 strength in all extremities. Reflexes 2+/2 and symmetric in all extremities. Bilateral flexor plantar responses. Sensory exam intact to light touch, pinprick, vibration, and proprioception in all extremities. Cerebellar testing no ataxia or dysmetria. Gait normal, negative Romberg, intact tandem Oral cavity: Normal, no lesions Breasts : Not performed Peripheral pulses: normal (2+) bilatera lly Back: No cervical or peris capular trigger points. Normal cervical and lumbar ROM Genitalia: Not performed
--- OUTSIDE RECORDS SUMMARY | 2024-08-09 14:14 | XMS_ITS ---
Author Organization [facility] Address [address] [place] [address] Care Team Providers Care Airplane Pilot Commercial Name Role Phone Dr. Kristi Martin Primary Care Provider Un available Zulema Malik Unavailable [phone] REASON FOR VISIT ARC follow-up Encounters Encounter Location Date Provider Diagnosis [facility] [address] [place] [address] 01/17/2024 Zulema Malik Plan Of Treatment No Information Progress Notes * Sarah ARORADOB:02/1940 (84 yo F)Acc No.[id number]:01/17/2024 Progress Notes Patient: Sarah MCCARTHY Provider: Ayush Malik MD :1940 A ge:83 Y S ex:Female Date:01/17/2024 [facility] [facility] Pcp:Dr. Kristi Martin Subjective: * Chief Complaints: * 1 . ARC follow-up. * Medical History: Objective: * Vitals: Assessment: Plan: * Treatment: * Billing Information: * Visit Code: * Procedure Codes: * Electronic signature of Kady Malik MD on 08/09/2024 at 02:14 PM CIRCULAR SAW FILER Sign off status: Pending * Provider: Ayush Malik MD Date: 0 01/17/2024 Generated for Magno montgomery/Frederick/Juan Citting on: 0 08/09/2024 02:14 PM CIRCULAR SAW FILER
--- OUTSIDE RECORDS SUMMARY | 2024-08-09 14:15 | XMS_ITS | Clinical Summary ---
Author Organization [facility] Care Team Providers Care Lpn Medical Assistant Name Role Phone Unavailable Primary Care Provider [...]
--- OUTSIDE RECORDS SUMMARY | 2024-08-09 14:15 | XMS_ITS ---
Author Organization [facility] Address [address] [place] [address] Care Team Providers Care Tactical Air Control Party Manager Name Role Phone Dr. Kristi Martin Primary Care Provider Un available Zulema Malik Unavailable [phone] Allergies No Known Allergies REASON FOR VISIT Chronic upper airway symptoms concerning for uncontrolled atopic disease Medications Medication SIG (Take, Route, Frequency, Duration) Notes Start Date End Date Status Azelastine HCl 137 MCG/SPRAY 2 sprays in each nostril Nasally Twice a day for 30 days 12/14/2023 Active Cetirizine HCl 10 MG 1 tablet Orally Onc e a day for 30 days 12/14/2023 Active clonazePAM 0.5 MG Oral for 30 Days Active Atorvastatin Calcium 10 MG TAKE 1 TABLET BY MOUTH EVERY OTHER DAY Oral for 100 Days Active hydrALAZINE HCl 25 MG TAKE 1 TABLET BY M OUTH THREE TIMES DAILY Oral for 30 Days Active Social History Tobacco Use: Social History Observation Description Date Details (start date - stop date) Never Smoker NA - NA Tobacco Control (Standard) Question Answer Notes Tobacco use: Nonsmoker Section Notes: lives with her son on [address] Problems Problem Type SNOMED Code ICD Code Onset Dates Problem Status W/U Status Risk Notes Problem Allergic rhinitis caused by pollen (disorder) (99926248) Allergic rhinitis due to pollen (J30.1) Active confirmed Problem Allergic rhinitis caused by animal hair and dander ([id number]) Allergic rhinitis due to animal (cat) (dog) hair and dander (J30.81) Active confirmed Problem Allergic rhinitis (65675944) Other allergic rhinitis (J30.89) Active confirmed Problem Chronic allergic conjunctivitis (82254856) Other chronic allergic conjunctivitis (H10.45) Active confirmed Problem Chronic rhinitis (32873340) Chronic rhinitis (J31.0) Active confirmed Problem Uncomplicated moderate persistent asthma (982038326) Moderate persistent asthma, uncomplicated (J45.40) Active confirmed Problem Uncomplicated mild persistent asthma (039374526) Mild persistent asthma, uncomplicated (J45.30) Active confirmed Problem Uncomplicated severe persistent asthma (844074949) Severe persistent asthma, uncomplicated (J45.50) Active confirmed Vital Signs Blood pressure systolic 169 mm Hg 12/14/19 24 Blood pressure diastolic 79 mm Hg 024 Height 61 in 12/14/2023 Weight 176.2 lbs 12/14/2023 BMI 33.29 kg/m2 12/14/2023 Oximetry 95 % 12/14/2023 Encounters Encounter Location Date Provider Diagnosis [facility] [address] [place] [address] [address] [place] [address] 12/14/2023 Zulema King Chronic rhinitis J31.0 and Headache, unspecified R51.9 Assessments Encounter Date Diagnosis (ICD Code) Assessment Notes Treatment Notes Treatment Clinical Notes Section Notes 12/14/2023 Chronic rhinitis (ICD-10 - J31.0) Given the history and symptoms, skin testing was performed to common aeroallergens to determine atopic status. Skin testing today was negative for aeroallergens. Skin testing was also negative at [facility] 3 years ago per her report. Sinus [...] - R51.9) 12/14/2023 Other Plan Of Treatment Medication Medication Name Sig Start Date Stop Date Notes Azelastine HCl 137 MCG/SPRAY 2 sprays in each nostril Nasally Twice a day for 30 days 12/14/2023 Cetirizine HCl 10 MG 1 tablet Orally Onc e a day for 30 days 12/14/2023 Treatment Notes Assessment Notes Chronic rhinitis Given the history an d symptoms, skin testing was performed to common aeroallergens to determine atopic status. Skin testing today was negative for aeroallergens. Skin testing was also negative at [facility] 3 years ago per her report. Sinus CT negative per ENT records. We discussed non allergic rhinitis including trigger factors of strong odors and changes in barometric pressure. Start a trial of Astelin and Cetirizine. Imaging was performed this am which was ordered by PCP. If no improvement, recommend evaluation for migraines by Dr. Jj. Next Appt Details Follow Up: 4 Weeks, Reason: Evaluation and Management Procedure Notes * Category Sub-Category Detail Notes Skin Testing Number of Skin Tests Performed (including controls): Aeroallergen: Yes Epicutaneous: 72 Epicutaneous (New) skin testing was per formed to common aeroallergens Showing negative reactions , positive and negative controls responded appropriately Progress Notes * Sarah ARORADOB:02/1940 (83 yo F)Acc No.[id number]:12/14/2023 Progress Notes Patient: Sarah MCCARTHY Provider: Ayush Malik MD :1940 A ge:83 Y S ex:Female Date:12/14/2023 Address:[address] [place] [address] [facility] Pcp:Dr. Kristi Martin Subjective: * Chief Complaints: * C hronic upper airway symptoms concerning for uncontrolled atopic disease * HPI: * Introduction: I had the pleasure of seeing Simin Arora, a 83 year old with HTN presenting for evaluation of allergic rhinitis. She was referred by Dr. Fuller. Records were reviewed. She reports frequent faical pressure around her nose and pressure in the back of her head. Pressure started about 1 month ago and also increases in the Spring season. She reports daily pressure for a few hours. She reports congestion, no nasal drainage. No decrease in sense of smell. Her PCP prescribed a Zpack without improvement. She was evaluated by ENT, Dr. Carroll and Dr. Phillips and normal exam. Records reported normal CT sinus October 2023 and referred for allergy evaluation. Skin testing was performed at [facility] about 3 years ago and normal per her report. She is using nasal saline on a daily basis. She has tried Vicks Sinex nasal spray without improvement. She has not tried antihistamines. She took a generic headache medicine from [email or web address] and some improvement. She does not know the name of the medication. She had brain imaging this am ordered by PCP. She denies a history of physician-diagnosed allergic rhinitis, recurrent sinusitis or otitis media, recurrent pneumonia, asthma/RAD, eczema, food allergies, urticaria/angioedema, medication allergies, contact dermatitis, latex allergy, eosinophilic esophagitis or stinging insect hypersensitivity,.? * Allergic Rhinoconjunctivitis: Allergic rhinitis D o you have or suspect you have allergic rhinitis (itchy eyes, sneezing, congestion or runny nose triggered by allergies)? Y es W hich areas and what symptoms are involved? Please fill out each section below as needed. e yes,cough,nose,headache,sinuses W hich of the following trigger your allergic rhinitis symptoms? s inus infections,spring (season) D o you have any of the following other symptoms associated with your allergic rhinitis? r estless sleep,more irritability than in the past,steeple jack headaches Eyes S pecific affected area: b oth (bilateral) W hen does this mostly occur? a .m. S ymptoms: i tching,swelling of the lids E ffective treatments: o ther OTC medication Nose S pecific area affected: b oth (bilateral) W hen does this mostly occur? a .m. S ymptoms? c ongestion,sneezing jags,sinus infection,nasal polyp E ffective treatments? n temitope salt water irrigation (Neti Pot or NeilMed Sinus) Sinuses D o you have sinus pain? Y es H ave you lost sense of taste? Y es W here? c enter of forehead above eyes (frontal),deep inside the head (sphenoid) H ave you been treated with antibiotics for sinusitis? Y es W hich antibiotics? o ther H ow often in the past year? 6 - 10 times W hat is the longest duration of antibiotics prescribed and completed? 3 -5 [address] any of the following treatments improved your sinus symptoms? n temitope steroid sprays (Flonase or Nasonex or Veramyst),nasal salt water irrigations (Neti Pot or NeilMed) H ave you ever had a CT scan or xray? Y es W here? [facility] H ave you ever undergone sinus surgery? N o Sore Throat O ccurence? i ntermittent H ow frequent? i nfrequent W hen does this usually occur? a .m. E ffective treatments? n temitope steroid sprays (Flonase or Nasonex or Veramyst),nasal salt water rinse (Neti Pot or NeilMed),oral antihistamines (Zyrtec or Genia) Cough F requency: w eekly I s cough more bothersome during night? Y es I s phlegm produced? N o E ffective treatments? n temitope spray steroid (Flonase or Nasonex),prescription cough medicine (Tessalon Perles or Tussionex) Headache S pecific area(s) affected? c enter forehead (frontal),back area of the head,base of neck O ccurence? i ntermittent H ow frequent? w eekly W hat time of day does this mostly occur? a .m. A ccompanying symptoms? n one * ROS: A LLERGY: Positive p er the HPI and history, otherwise unremarkable.? S PECIAL SENSES: Positve for n one. C ONSTITUTIONAL: Positive for n one. E NT: Positive p er the HPI and history, otherwise unremarkable.? R ESPIRATORY: Positive p er the HPI and history, otherwise unremakable.? O PHTHALMOLOGY: Positive for p er the HPI and history, otherwise unremarkable. E NDOCRINOLOGY: Positive for n one. C ARDIOLOGY: Positive for n one. G ASTROENTEROLOGY: Positive for n one. U ROLOGY: Positive for n one. D ERMATOLOGY: Positive for p er the HPI and history, otherwise unremakable. N EUROLOGY: Positive for n one. H EMATOLOGY/LYMPH: Positive for n one. M USCULOSKELETAL: Positive for n one. P SYCHOLOGY: Positive for n one. A ll other review of systems per the HPI and history, otherwise unremarkable. * Medical History: * Surgical History: k nee replacement 2008 * Hospitalization/Major Diagno stic Procedure: D enies Past Hospitalization * Family History: F ather: diagnosed with Cancer. M other: diagnosed with Diabetes. * Social History: H ome description Basement: N o Do you own any pets? N o T obacco Control (Standard) Tobacco use: N onsmoker hair see with her son [place]. * Medications: T akinghydrALAZINE HCl 25 MG Tablet TAKE 1 TABLET BY MOUTH THREE TIMES DAILY Oral Atorvastatin Calcium 10 MG Tablet TAKE 1 TABLET BY MOUTH EVERY OTHER DAY Oral clonazePAM 0.5 MG Tablet Oral Medication List reviewed and reconciled with the patientTaking hydrALAZINE HCl 25 MG Tablet TAKE 1 TABLET BY MOUTH THREE TIMES DAILY Oral Taking Atorvastatin Calcium 10 MG Tablet TAKE 1 TABLET BY MOUTH EVERY OTHER DAY Oral Taking clonazePAM 0.5 MG Tablet Oral Medication List reviewed and reconciled with the patient * Allergies: N .K.D.A.no[Allergies Verified] Objective: * Vitals: B P:169/79mm Hg, HR:65/min, Pulse Oximetry:95%, Ht: 61 in, Wt: 176.2 lbs, BMI:33.29Index. * Examination: G eneral examination: General appearance: p leasant, well-developed, well-nourished. HEENT: c onjunctiva are clear bilaterally, no tenderness to palpation of the sinuses, TM's without evidence of acute infection, turbinates with pink mucosa, clear rhinorrhea is present, no polyps noted, no septal perforation, posterior oropharynx is clear, no tongue swelling, and uvula is midline. Oral cavity: n ormal, no lesions. Neck, thyroid : s upple, non-tender, no anterior cervical lymphadenopathy. Breasts : n ot performed. Heart: R RR, S1-S2, no murmurs, no rubs, no gallops. Lungs: c lear to auscultation and percussion in all lung strickland, no wheezes or crackles. Neurologic exam: u nremarkable. Skin: n ormal, no rash, dermatographism, urticaria, angioedema. Peripheral pulses: n ormal (2+) bilaterally. Back: n ormal. Extremities: n ormal ROM, no clubbing, no cyanosis, no edema. Genitalia: n ot performed. Assessment: * Assessment: 1. C hronic rhinitis - J31.0 (Primary) 2 . H eadache, unspecified - R51.9? Plan: * Treatment: * Procedures: S kin Testing: Number of Skin Tests Performed (including controls): A eroallergen Y es E picutaneous 7 2 Epicutaneous (New) s kin testing was performed to common aeroallergens Showing negative reactions , positive and negative controls responded appropriately.? * Procedure Codes: 9 5004 PRICK TESTS, Units: 72.00 55458 PT-FOCUSED HLTH RISK [id number] DOC MEDS VERIFIED W/PT OR RE * Preventive Medicine: Counseling: M edication instruction: W atch for side effects of prescribed medications, Nasal steroid/antihistamine instruction: avoid septum. E ducation: G ENERAL EDUCATION: Our staff spent an additional 30 minutes in direct contact with the patient educating them on their current diagnoses and proper treatment and prevention of symptoms and the proper use of medications. P atient education material sent to portal? Y es C are goal follow up plan Above Normal BMI Follow-up E xercise promotion: stretching B P Management: FIRST HYPERTENSIVE BP READING FOLLOW-UP PLAN: F ollow-up 1 month REFERRAL TO ALTERNATIVE / PRIMARY CARE PROVIDER: R shahbazal to general physician * Follow Up: 4 Weeks (Reason: Evaluation and Management) * Billing Information: * Visit Code: 14926 Office Visit, New Pt., Level 3. Modifiers: 25 * Procedure Codes: 36118 PRICK TESTS. Units: 72.00. 37706 PT-FOCUSED HLTH RISK ASSMT. G8427 DOC MEDS VERIFIED W/PT OR RE. Images * Skin Testing * Sign off status: Completed true * Provider: Ayush Malik MD Date: 0 12/14/2023 Generated for Magno montgomery/[place]/eTransmitting on: 0 08/09/2024 02:14 PM EDGE SETTER History and Physical Notes * HPI (History of Present Illness) Category Sub-Category Detail Notes Category Not es *Introduction I had the pleasure of seeing Sarah Arora, a 83 year old with HTN presenting for evaluation of allergic rhinitis. She was referred by Dr. Fuller. Records were reviewed. She reports frequent faical pressure around her nose and pressure in the back of her head. Pressure started about 1 month ago and also increases in the Spring season. She reports daily pressure for a few hours. She reports congestion, no nasal drainage. No decrease in sense of smell. Her PCP prescribed a Zpack without improvement. She was evaluated by ENT, Dr. Carroll and Dr. Phillips and normal exam. Records reported normal CT sinus October 2023 and referred for allergy evaluation. Skin testing was performed at [facility] about 3 years ago and normal per her report. She is using nasal saline on a daily basis. She has tried Vicks Sinex nasal spray without improvement. She has not tried antihistamines. She took a generic headache medicine from [email or web address] and some improvement. She does not know the name of the medication. She had brain imaging this am ordered by PCP. She denies a history of physician-diagnosed allergic rhinitis, recurrent sinusitis or otitis media, recurrent pneumonia, asthma/RAD, eczema, food allergies, urticaria/angioedema, medication allergies, contact dermatitis, latex allergy, eosinophilic esophagitis or stinging insect hypersensitivity, *Allergic Rhinoconjunctivitis Eyes Specific affected area:: both (bilateral) When does this mostly occur?: a.m. Symptoms:: itching,swelling of the lids Effective treatments:: other OTC medicat ion Cough Frequency:: weekly Is cough more bothersome during night?: Yes Is phlegm produced?: No Effective treatments?: nasal spray steroid (Flonase or Nasonex),prescription cough medicine (Tessalon Perles or Tussionex) Nose Specific area affected:: both (b ilateral) When does this mostly occur?: a.m. Symptoms?: congestion,sneezing jags,sinu s infection,nasal polyp Effective treatments?: nasal salt water irrigation (Neti Pot or NeilMed Sinus) Sore Throat Occurence?: intermittent How frequent?: infrequent When does this usually occur?: a.m. Effective treatments?: nasal steroid sprays (Flonase or Nasonex or Veramyst),nasal salt water rinse (Neti Pot or NeilMed),oral antihistamines (Zyrtec or Genia) Headache Specific area(s) aff ected?: center forehead (frontal),back area of the head,base of neck Occurence?: intermittent How frequent?: weekly What time of day does this mostly occur? : a.m. Accompanying symptoms?: none Sinuses Do you have sinus pain?: Yes Have you lost sense of taste?: Yes Where?: center of forehead above eyes (frontal),deep inside the head (sphenoid) Have you been treated with antibiotics f or sinusitis?: Yes Which antibiotics?: other How often in the past year?: 6 - 10 times What is the longest duration of antibiotics prescribed and completed?: 3-5 days Have any of the following tr eatments improved your sinus symptoms?: nasal steroid sprays (Flonase or Nasonex or Veramyst),nasal salt water irrigations (Neti Pot or NeilMed) Have you ever had a CT scan or xray?: Ye s Where?: [facility] Have you ever undergone sinus surgery?: No Allergic rhinitis Do you have or suspe ct you have allergic rhinitis (itchy eyes, sneezing, congestion or runny nose triggered by allergies)?: Yes Which areas and what symptoms are involved? Please fill out each section below as needed.: eyes,cough,nose,headache,sinuses Which of the following trigger your allergic rhinitis symptoms?: sinus infections,spring (season) Do you have any of the following other symptoms associated with your allergic rhinitis?: restless sleep,more irritability than in the past,steeple jack headaches Examination Category Sub-Category Detail Notes Category Not es General examination HEENT: conjunctiva are clear bilaterally, no tenderness to palpation of the sinuses, TM's without evidence of acute infection, turbinates with pink mucosa, clear rhinorrhea is present, no polyps noted, no septal perforation, posterior oropharynx is clear, no tongue swelling, and uvula is midline Neck, thyroid : supple, non-tender, no anterior cervical lymphadenopathy Heart: RRR, S1-S2, no murmu rs, no rubs, no gallops Lungs: clear to auscultatio n and percussion in all lung strickland, no wheezes or crackles Abdomen: Extremities: normal ROM, no clubb ing, no cyanosis, no edema General appearance: pleasant, well-devel oped, well-nourished Skin: normal, no rash, maggie matographism, urticaria, angioedema Neurologic exam: unremarkable Oral cavity: normal, no lesions Breasts : not performed Peripheral pulses: normal (2+) bilatera lly Back: normal Genitalia: not performed
--- OUTSIDE RECORDS SUMMARY | 2024-08-09 14:15 | XMS_ITS | Patient Health Summary ---
Author Organization [facility] Address [address] [place] [address] Care Team Providers Care Boring Inspector Name Role Phone Bianca Booth MD Primary Care Provider Note from [facility],non-owned Affiliates and Associated Physician Practices is amultiple site organization consisting of ambulatory clinics and hospital sitesin [place], [place], [place] and [place]. This disclosure is being madepursuant to the Care Everywhere program and may not contain all information available regarding this patient. Last updated 18.[facility] Allergies * Hydrocodone(Dizzy and palpitations) Medications * Be aware that medications may not be up to date on this document. Alwaysverify current medications with the patient. * triamterene-hydrochlorothiazide (DYAZIDE) 37.5-25 MG capsule Take 1 Cap by mouth once daily. * rosuvastatin (CRESTOR) 5 MG tablet Take 5 mg by mouth at bedtime. * Cholecalciferol (VITAMIN D3) 61114 UNIT CAPS Take by mouth 2 times [...] THANK YOU FOR THE REFERRAL Katelin Sofia HOME SCHOOL COORDINATOR [facility] Interventional Procedure Note Katelin Sofia LPN - 10/01/2011 11:24 AM CDT CONSULT NOTED, SPOKE WITH PATIENT, [facility] OK TO FOLLOW ATDISCHARGE THANK YOU FOR THE REFERRAL Katelin Sofia HOME SCHOOL COORDINATOR [facility] Interventional Velma Bran MD INPATIENT ANCILLARY CONSULT * (ABNORMAL) HGB HCT PANEL (10/01/2011 5:10 AM CDT) Only the most recent of5 resultswithin the time period is included. Hemoglobin 9.1(L) 12.0 - 16.0 gm/dl [facility] Hematocrit 28.0(L) 36.0 - 48.0 % [facility] Blood specimen (specimen) BLOOD SPECIMEN / Unknown 10/01/2011 5:10 AM CDT 10/01/2011 5:13 AM CDT Velma Bran MD LAB - HEMATOLOGY ORD ERABLES Performing Organization Address [facility] Co de Phone Number [facility] [address] [place] [address] * (ABNORMAL) BASIC METABOLIC PANEL (CALCIUM TOTAL) (09/30/2011 3:37 AM CDT) Only the most recent of2 resultswithin the time period is included. Pathologist [facility] BUN 20 7.0 - 21.0 mg/dL [facility] Sodium 139 136 - 145 mmol/L [facility] Potassium 4.6 3.5 - 5.1 mmol/L [facility] Chloride 101 98.0 - 107.0 mmol/L [facility] CO2 29 22.0 - 30.0 mmol/L [facility] Anion Gap 9.0 [facility] Glucose 151(H) 74 - 106 mg/dL [facility] Creatinine 0.90 0.5 - 1.3 mg/dL [facility] Calcium 8.1(L) 8.5 - 10.1 mg/dL [facility] eGFR by MDRD 61 mL/min/1.7 3m2 [facility] Blood specimen (specimen) BLOOD SPECIMEN / Unknown 09/30/2011 3:37 AM CDT 09/30/2011 3:47 AM CDT Velma Bran MD LAB - CHEMISTRY ORDE RABCANDY Performing Organization Address [facility] Co de Phone Number [facility] [address] [place] [address] * CULTURE MSSA/MRSA (09/08/2011 4:35 PM CDT) Only the most recent of2 resultswithin the time period is included. Result [facility] Comment: Final CULTURE NO growth S.aureus/NO growth S.aureus (MRSA) SPECIMEN FROM NASAL FOSSAE / Unknown 09/08/2011 4:35 PM CDT 09/08/2011 4:35 PM CDT Narrative Resulting Agency Comment Performed By [facility];[address];[place] [address] Velma Bran MD LAB - MICROBIOLOGY O RDERABLES [facility] [address] [place] [address] * XR KNEE 1 OR 2 VW LEFT (07/28/2011 1:13 PM MANAGER PACKAGE) Anatomical Region Laterality Modality Lower Extremity Other Narrative 07/28/2011 1:13 PM MANAGER PACKAGE Lilian De Jesus 07/28/2011 1:13 PM Please see progress notes for result. Procedure Note Lilian De Jesus - 07/28/2011 1:13 PM CST Please see progress notes for result. Velma Bran MD DIAGNOSTIC IMAGING O RDERABLES * CARDIAC EKG ORDER (07/10/2011 10:18 AM MANAGER PACKAGE) Only the most recent of2 resultswithin the time period is included. Narrative Transcriptions Document, Scanned - 07/10/2011 10:18 AM CST Scanned Document CARDIAC SERVICES ORD ERABLES * IP CONSULT TO HOSPITALIST (07/07/2011 1:30 PM MANAGER PACKAGE) Narrative Jenifer Hummel MD - 07/07/2011 1:30 PM MANAGER PACKAGE Jenifer Hummel MD 07/07/2011 1:30 PM Seen and examined Full note to follow A/p djd knee Dyslipidemia HTN GERD Snoring dvt ppx [id number] Procedure Note Jenifer Hummel MD - 07/07/2011 1:25 PM CST Seen and examined Full note to follow A/p djd knee Dyslipidemia HTN GERD Snoring dvt ppx [id number] Velma Bran MD INPATIENT CONSULT OR DERABLES * URINALYSIS ROUTINE W/REFLEX TO CULTURE (06/21/2011 2:00 PM MANAGER PACKAGE) Color UA YELLOW [facility] Character UA CLEAR [facility] Specific Beaver UA 1.023 1.005 - 1.0300 [facility] pH UA 5.0 4.6 - 8.0 pH Units [facility] Leukocyte UA NEGATIVE Negative /ul [facility] Nitrite UA NEGATIVE Negative [facility] Protein UA NEGATIVE Negative mg/dl [facility] Glucose UA NEGATIVE Normal mg/dl [facility] Ketone UA NEGATIVE Negative mg/dl [facility] Urobilinogen UA 0.2 Normal Elyssa Units [facility] Bilirubin UA NEGATIVE Negative mg/dl [facility] Blood UA NEGATIVE Negative /ul [facility] WBC UA 0-2 <5 /HPF [facility] RBC UA 0-2 <5 /HPF [facility] Epithelial Cell UA 0-2 <5 /HPF [facility] Casts UA 0-2 <2 /LPF [facility] Bacteria UA NEGATIVE [facility] Urine Culture No culture to be done per protocol. [facility] Urine specimen (specimen) URINE SPECIMEN OBTAINED BY CLEAN CATCH PROCEDURE / Unknown 06/21/2011 2:00 PM MANAGER PACKAGE 06/21/2011 2:44 PM MANAGER PACKAGE Velma Bran MD LAB - URINALYSIS ORD ERABLES [facility] [address] [place] [address] * XR KNEES AP BILATERAL STANDING (06/11/2011 2:50 PM MANAGER PACKAGE) Anatomical Region Laterality Modality Lower Extremity Other Narrative 06/11/2011 2:50 PM MANAGER PACKAGE RT Cristian 06/11/2011 2:50 PM Please see office note for result. Procedure Note Ashley Modi, - 06/11/2011 2:49 PM CST Please see office note for result. Velma Bran MD DIAGNOSTIC IMAGING O RDERABLES Care Teams Boring Inspector Relationship Specialty Start Date End Date Bianca Booth MD [address] [place] [phone] [facility] - General 06/21/11
== END 2024-08-09 12:57 | disposition home or self-care (01) ==
PROVIDERS: PCP Family Medicine; Visit Provider Physician Assistant
DX: N63.20 Unspecified lump in the left breast, unspecified quadrant (principal); N64.4 Mastodynia; E11.9 Type 2 diabetes mellitus without complications; I10 Essential (primary) hypertension; E78.5 Hyperlipidemia, unspecified
CPT/HCPCS: 77061; 77065; G0279

== ENCOUNTER 2024-10-08 09:44 | Outpatient (CLI) | payer MEDICARE, SELFPAY ==
--- NOTE | ~2024-10-08 | NM_ITS ---
EXAMINATION: NM betty stress w perfusion DATE: 10/08/2024 11:58 INDICATION: Chest pain TECHNIQUE: Rest images were obtained following intravenous administration of 9 mCi Tc99m tetrofosmin (Myoview). The patient was infused intravenously with Lexiscan (Regadenoson). Then, 27.3 mCi Tc99m te trofosmin (Myoview) was administered intravenously, and stress images were obtained. Data was reconst ructed into short axis and horizontal and vertical long axis SPECT images. Gated SPECT images were al so obtained. COMPARISON: None. FINDINGS: There is no definite reversible or fixed perfusion abnormality to suggest ischemia or infar ction. There is normal left ventricular chamber size, wall motion and ejection fraction. Left ventr icular ejection fraction measures 64%. IMPRESSION: 1. Normal myocardial perfusion at rest and during stress. 2. Left ventricular ejection fraction measuring 64%. Reviewed, dictated and finalized at location A.
--- NOTE | 2024-10-08 09:53 | EST_ITS ---
Patient Info Name: Sarah Tan Age: 84 years : 1940 Gender: Female Ht: 64 in Wt: 167 lbs BSA: 1.87 m2 HR: 59 bpm BP: 161 / 75 mmHg Heart Rhythm: Sinus Rhythm Exam Date: 10/08/2024 10:50 AM Exam Location: Echo Lab Patient Status: Outpatient Admit Date: 10/08/2024 Staff Ordering Physician: Viri Correa PA-C Attending Provider: Viri Correa PA-C Exercise Technologist: Zohra Escobar RDCS Exercise Physician: Cezar Jose DO Exam Type: CA stress betty w NM Study Info A regadenoson stress test was performed. Summary 1. 1. Negative lexiscan stress test for ischemic ST changes by ECG criteria. 2. 2. Baseline hypertension. 3. 3. Nuclear scan to follow and will be reported separately. Please correlate with it. 4. 4. Patient informed of the above results. Protocol: Lexiscan Stress ECG Details Stage: REST Duration (min): 1 min : 59 sec HR (bpm): 60 SBP (mmHg): 161 DBP (mmHg): 75 Stage: REST Duration (min): 10 min : 40 sec HR (bpm): 60 SBP (mmHg): 161 DBP (mmHg): 75 Stage: STAGE 1 Duration (min): 1 min : 0 sec HR (bpm): 67 SBP (mmHg): 158 DBP (mmHg): 95 Stage: RECOVERY Duration (min): 1 min : 0 sec HR (bpm): 76 SBP (mmHg): 158 DBP (mmHg): 95 Stage: RECOVERY Duration (min): 2 min : 0 sec HR (bpm): 71 SBP (mmHg): 158 DBP (mmHg): 95 Stage: RECOVERY Duration (min): 3 min : 0 sec HR (bpm): 70 SBP (mmHg): 151 DBP (mmHg): 73 Stage: RECOVERY Duration (min): 3 min : 32 sec HR (bpm): 70 SBP (mmHg): 151 DBP (mmHg): 73 Rest HR: 60 bpm Peak HR: 79 bpm Rest Sys BP: 161 mmHg Peak Sys BP: 158 mmHg Max Pred HR: 134 bpm % Max Pred HR: 59 % Target HR: 114 bpm Max RPP: 12,482 bpm*mmHg Termination Reason: Completed protocol Cardiac Symptoms: Shortness of breath Total Time: 1 min : 0 sec Rest Hernandes BP: 75 mmHg Peak Hernandes BP: 95 mmHg Total Dose: 0.4 mg Resting ECG Sinus rhythm, RBBB, LAFB. Stress ECG No ST changes. Arrhythmias None. Report Signatures
--- OUTSIDE RECORDS SUMMARY | 2024-10-08 10:29 | XMS_ITS | Clinical Summary ---
Author Organization [facility] Address [address] [place] [address] Care Team Providers Care Plumber Cub Name Role Phone Bianca Booth MD Primary Care Provider [phone] Source Comments [facility] Affiliates and Associated Physician Practices is amultiple site organization consisting of ambulatory clinics and hospital sitesin [place], [place], [place] and [place]. This disclosure is being madepursuant to the Care Everywhere program and may not contain all information available regarding this patient. Last updated 18.[facility] Allergies Active Allergy Reactions Criticality Noted Date Comments Hydrocodone 06/14/2011 Dizzy and palpitations Medications * Be aware that medications may not be up to date on this document. Alwaysverify current medications with the patient. triamterene-hydr ochlorothiazide (DYAZIDE) 37.5-25 MG capsule Take 1 Cap by mouth once daily. Active rosuvastatin (CRESTOR) 5 MG tablet Take 5 mg by mouth at bedtime. Active Cholecalciferol (VITAMIN D3) 15120 UNIT CAPS Take by mouth 2 times [...] GLUCOSAMINE CHONDROITIN COMPLX PO Take by mouth. Activ e aspirin 325 MG tablet Take 1 Tab by mouth 2 times daily. 120 Tab 2 Active oxycodone-acetam inophen (PERCOCET) 10-325 MG tablet Take 1 Tab by mouth every 4 hours as needed for Pain. 50 Tab 0 2 Active Active Problems Problem Noted Date Diagnosed Date Primary localized osteoarthrosis, lower leg DJD R KNEE 09/08/2011 S/P total knee replacement LEFT TKR ON 07/07/11 Aftercare following joint replacement L TKR 08/03/2011 S/P total knee replacement 07/28/2011 Immunizations Immunization Administration Dates Next Due PNEUMOCOCCAL PPSV23 10/01/2011 Family History Medical History Relation Name Comments Cancer Father prostate Diabetes Mother Heart Failure Mother Relation Name Status Comments Father Mother Social History Tobacco Use Types Packs/Day Years Used Date Smoking Tobacco: Never Smokeless Tobacco: Never Alcohol Use Standard Drinks/Week Comments No 0 (1 standard drink = 0.6 oz pur e alcohol) Comments Unknown Sex and Gender Information Value Date Recorded Sex Assigned at Not on file 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 Gender Identity Not on file Sexual Orientation [...] - 1-dose 75+ series) 2013 COVID-19 VACCINE (2023-2 5 season) 2024 DEPRESSION SCREENING 06/06/2024 INFLUENZA VACCINE (Season Ended) 2025 HEPATITIS B VACCINE Aged Out No longe r eligible based on patient's age to complete this topic HIB VACCINE Aged Out No longer eligi ble based on patient's age to complete this topic HPV VACCINE Aged Out No longer eligi ble based on patient's age to complete this topic MENINGOCOCCAL (Group B) VACC INE SHARED DECISION-MAKING Aged Out No longer eligibl e based on patient's age to complete this topic MENINGOCOCCAL GROUPS A/C/Y/W VACCINE Aged Out No longer eligible b ased on patient's age to complete this topic Insurance [address] [place] [address] Advance Directives Documents on File Type Date Recorded Patient Harness Cutter Expl anation Adv Directive/Living Will/POA 07/10/2011 9:58 AM * FULL RESUSCITATION (Latest Code Status on File) Date Activated Date Inactivated Comments 07/07/2011 10:45 AM 07/10/2011 12:21 AM Care Teams Plumber Cub Relationship Specialty Start Date End Date Bianca Booth MD [address] [place] [address] [address] [place] [phone] PCP - General 06/21/11
--- OUTSIDE RECORDS SUMMARY | 2024-10-08 10:29 | XMS_ITS ---
Author Organization [facility] [place] ([address]) Address [address] [place] [address] Care Team Providers Care Legal Recruiter Name Role Phone Dr. Kristi Martin Primary Care Provider Un available Zulema Malik Unavailable [phone] Dr. Shai Jj Unavailable [phone] REASON FOR VISIT Consult Headache Medications Medication [...] Problem Chronic migraine without aura, non-intractab le (651781181631 100) Chronic migraine without aura, not intractable, without status migrainosus (G43.709) Active confirmed Problem Migraine with aura (4505610) Migraine with aura, not intractable, without status migrainosus (G43.109) Active confirmed Problem Chronic migraine without aura, non-refractor y (disorder) (114995903975 100) Migraine without aura, not intractable, without status migrainosus (G43.009) Active confirmed Encounters Encounter Location Date Provider Diagnosis [facility] [address] [place] [address] 01/05/2024 Shai Jj Chronic migraine without aura, [...] and Management Progress Notes * Sarah ARORA AyushDOB:02/1940 (84 yo F)Acc No.[id number]:01/05/2024 Progress Notes Patient: Sarah MCCARTHY Provider: Carmelita Jj MD :1940 A ge:83 Y S ex:Female Date:01/05/2024 Address:[address] [place], [place] [phone] Pcp:Dr. Kristi Martin Subjective: * Chief Complaints: [...] T obacco Control (Standard) Tobacco use: N [place]. [...] G8427 DOC MEDS VERIFIED W/[place], [address] PT-FOCUSED HLTH RISK ASSMT * Follow Up: 4 Weeks (Reason: Evaluation and Management) * Billing Information: * Visit Code: 86738 Office Visit, New Pt., Level 4. Modifiers: 25 * Procedure Codes: G0444 ANNUAL DEPRESSION SCREENING 5-15 MIN. G8427 DOC MEDS VERIFIED W/[place]. [address] PT-FOCUSED HLTH RISK ASSMT. * Electronic signature of Dr. Shai Jj MD on 10/08/2024 at 10:29 AM CDT Sign off status: Pending * Provider: Carmelita Jj MD Date: 0 01/05/2024 Generated for Magno montgomery/Frederick/Ivette on: 0 10/08/2024 10:29 AM CDT History and Physical Notes * HPI (History [...]
--- OUTSIDE RECORDS SUMMARY | 2024-10-08 10:30 | XMS_ITS | Patient Health Record ---
Author Organization [facility] [employer] [place] ([address]) Address [address] [place] [address] Care Team Providers Care Stunner Animal Name Role Phone Dr. Kristi Martin Primary Care Provider Un available Zulema Malik Unavailable [phone] Dr. Shai Jj Unavailable [phone] Allergies No Known Allergies Reason For Referral [...] Section Notes: lives with her son [place] [address] [place] [address] Problems Problem Type SNOMED Code ICD Code Onset Dates Problem Status W/U Status Risk Notes Problem Chronic migraine without aura, non-refractory (disorder) (423286407464715) Migraine without aura, not intractable, without status migrainosus (G43.009) Active confirmed Problem Migraine with aura (2876157) Migraine with aura, not intractable, without status migrainosus (G43.109) Active confirmed Problem Chronic migraine without aura, non-intractable (714682722517995) Chronic migraine without aura, not intractable, without status migrainosus (G43.709) Active confirmed Problem Chronic allergic conjunctivitis (96045233) Other chronic allergic conjunctivitis (H10.45) Active confirmed Problem Allergic rhinitis caused by pollen (disorder) (10213926) Allergic rhinitis due to pollen (J30.1) Active confirmed Problem Allergic rhinitis (35640281) Other allergic rhinitis (J30.89) Active confirmed Problem Chronic rhinitis (32995807) Chronic rhinitis (J31.0) Active confirmed Problem Uncomplicated mild persistent asthma (791664906) Mild persistent asthma, uncomplicated (J45.30) Active confirmed Problem Uncomplicated moderate persistent asthma (532537665) Moderate persistent asthma, uncomplicated (J45.40) Active confirmed Problem Uncomplicated severe persistent asthma (237091898) Severe persistent asthma, uncomplicated (J45.50) Active confirmed Problem Allergic rhinitis caused by animal hair and dander (745390199323662) Allergic rhinitis due to animal (cat) (dog) hair and dander (J30.81) Active confirmed Vital Signs Oximetry 95 % 12/14/2023 Blood pressure diastolic 79 mm Hg 12/14/2023 Height 61 in 12/14/2023 Blood pressure systolic 169 mm Hg 12/14/2023 Weight 176.2 lbs 12/14/2023 BMI 33.29 kg/m2 12/14/2023 Encounters Encounter Location Date Provider Diagnosis [facility] [address] [address] 12/14/2023 Zulema King Chronic rhinitis J31.0 and Headache, unspecified R51.9 Assessments Encounter Date Diagnosis (ICD Code) Assessment Notes Treatment Notes Treatment Clinical Notes Section Notes 12/14/2023 Chronic rhinitis (ICD-10 - J31.0) Given the history and symptoms, skin testing was performed to common aeroallergens to determine atopic status. Skin testing today was negative for aeroallergens. Skin testing was also negative at [facility] 3 years [...] Insured Coverage Start Date Coverage End Date [employer] Medicare [address] [address] [place] [address] [id number] [facility] - patient is the insured 4 Medical (General) History Medical History History ICD Code Hypertension Surgical History Surgery Date(Month/Year) knee replacement 2008
--- OUTSIDE RECORDS SUMMARY | 2024-10-08 10:30 | XMS_ITS | Clinical Summary ---
Author Organization [facility] Care Team Providers Care Building Rental Manager Name Role Phone Unavailable Primary Care Provider [...]
--- NOTE | 2024-10-08 11:43 | ECHO_ITS ---
Patient Info Name: Sarah Tan Age: 84 years : 1940 Gender: Female Ht: 64 in Wt: 167 lbs BSA: 1.87 m2 HR: 59 bpm BP: 220 / 112 mmHg Heart Rhythm: Sinus Rhythm Technical Quality: Good Exam Date: 10/08/2024 11:47 AM Exam Location: Echo Lab Patient Status: Outpatient Admit Date: 10/08/2024 Staff Ordering Physician: Viri Correa PA-C Blower Insulator: Zohra Escobar RDCS Attending Provider: Viri Correa PA-C Referring Physician: Sunny RODRIGEZ; Exam Type: CA echo doppler color flow Study Info Indications R07.9 - Chest pain, unspecified R01.1 - Cardiac murmur, unspecified Complete two-dimensional, color flow and Doppler transthoracic echocardiogram is performed. Summary 1. Complete two-dimensional, color flow and Doppler transthoracic echocardiogram is performed. 2. Left ventricular chamber dimension is normal. 3. Left ventricular systolic function is normal, estimated at 60-65%. 4. There is mild concentric increased left ventricular wall thickness. 5. The left ventricular diastolic function is grade I diastolic dysfunction. 6. E/e' 9 is minimally elevated. 7. Left atrial chamber dimension is moderately enlarged. 8. There is mild aortic valve sclerosis. 9. There is mild to moderate aortic valve regurgitation. 10. The mitral valve has mildly calcified annulus. 11. There is trace mitral valve regurgitation. 12. No pulmonary hypertension, estimated pulmonary arterial systolic pressure is 25 mmHg. Left Ventricle E/e' 9 is minimally elevated. Left ventricular chamber dimension is normal. Left ventricular systolic function is normal, estimated at 60-65%. There is mild concentric increased left ventricular wall thickness. The left ventricular diastolic function is grade I diastolic dysfunction. Right Ventricle Right ventricular systolic function is normal and with normal TAPSE 1.9 cm. Right ventricular chamber dimension is normal. Left Atria Left atrial chamber dimension is moderately enlarged. Right Atria Right atrial chamber dimension is normal. Aortic Valve The aortic valve is trileaflet. There is mild aortic valve sclerosis. There is no aortic valve stenosis. There is mild to moderate aortic valve regurgitation. Pulmonic Valve There is no pulmonic regurgitation. Mitral Valve The mitral valve has mildly calcified annulus. There is no mitral valve stenosis. There is trace mitral valve regurgitation. Tricuspid Valve There is no tricuspid valve regurgitation. No pulmonary hypertension, estimated pulmonary arterial systolic pressure is 25 mmHg. Pericardium/Pleural There is no pericardial effusion. Inferior Vena Cava Normal inferior vena cava with >50% collapse upon inspiration consistent with normal right atrial pressure, 5 mmHg. Aorta The aortic root size at the sinus of Valsalva is normal. Left Ventricular Outflow Tract Name Value Normal LVOT 2D LVOT Diameter 2.0 cm LVOT Doppler LVOT Peak Gradient 4 mmHg LVOT Mean Gradient 2 mmHg LVOT VTI 24 cm LVOT VTI/AV VTI Ratio 0.9 LVOT Stroke Volume 72 ml LVOT CO 3.9 l/min LVOT CI 2.1 l/min/m2 Pulmonic Valve Name Value Normal RVOT Doppler RVOT Peak Gradient 2 mmHg PV Doppler PV Peak Gradient 4 mmHg Mitral Valve Name Value Normal MV Doppler MV Decel [place] 323 cm/s2 MV PHT 38 ms MV Area (PHT) 5.8 cm2 4.0-5.0 MV Diastolic Function MV E Peak Velocity 43 cm/s MV A Peak Velocity 125 cm/s MV E/A 0.3 MV Decel Time 132 ms MV Annular TDI MV E/e' (Septal) 16.7 <=8.0 MV E/e' (Lateral) 6.8 <=8.0 MV E/e' (Average) 11.7 Tricuspid Valve Name Value Normal TV Regurgitation Doppler TR Peak Velocity 222 cm/s TR Peak Gradient 20 mmHg Estimated PAP/RSVP RA Pressure 5 mmHg <=5 PA Systolic Pressure 25 mmHg <36 RV Systolic Pressure 25 mmHg <36 Aorta Name Value Normal Ascending Aorta Ao Root Diameter (MM) 2.8 cm Ao Root Diam Index (MM) 1.5 cm/m2 Aortic Valve Name Value Normal AV Doppler AV Peak Velocity 146 cm/s AV Peak Gradient 9 mmHg AV Mean Gradient 4 mmHg AV VTI 28 cm AV Area (Cont Eq VTI) 2.5 cm2 >=3.0 AV Area (Cont Eq Ricardo) 2.1 cm2 AV Regurgitation 2D LVOT Area 3.0 cm2 AV Regurgitation Doppler AR Decel Time 2,476 ms AR Decel [place] 193 cm/s2 AR PHT 718 ms Ventricles Name Value Normal LV Dimensions 2D/MM IVS Diastolic Thickness (2D) 1.1 cm 0.6-1.0 LVID Diastole (2D) 4.8 cm 3.8-5.2 LVIW Diastolic Thickness (2D) 1.0 cm 0.6-0.9 LVID Systole (2D) 2.9 cm 2.2-3.5 LVOT Diameter 2.0 cm LV Mass (2D Cubed) 177.78 g 67.00-162.00 LV Mass Index (2D Cubed) 95 g/m2 43-95 Relative Wall Thickness (2D) 0.40 LV Fractional Shortening/Ejection Fraction 2D/MM LV Fractional Shortening (2D) 40 % 27-45 LV EF (2D Teicholz) 70 % 54-74 LV Diastolic Volume (4C MOD) 63 ml LV EF (4C MOD) 67 % LV Diastolic Volume (2C MOD) 67 ml LV EF (2C MOD) 64 % LV Diastolic Volume (BP MOD) 65 ml 46-106 LV Diastolic Volume Index (BP MOD) 35 ml/m2 29-61 LV Systolic Volume (BP MOD) 22 ml 14-42 LV Systolic Volume Index (BP MOD) 12 ml/m2 8-24 LV EF (BP MOD) 66 % 54-74 LV Diastolic Length (4C) 8.4 cm LV Systolic Length (4C) 6.7 cm LV Stroke Volume (4C MOD) 42 ml Atria Name Value Normal LA Dimensions LA Dimension (MM) 5.0 cm 2.7-3.8 LA Volume (4C A-L) 65 ml LA Volume (BP A-L) 69 ml RA Dimensions RA Area (4C) 12.8 cm2 <=18.0 Report Signatures
== END 2024-10-08 09:45 | disposition home or self-care (01) ==
PROVIDERS: PCP Family Medicine; Visit Provider Physician Assistant
DX: R07.9 Chest pain, unspecified (principal); R94.31 Abnormal electrocardiogram [ECG] [EKG]; R06.00 Dyspnea, unspecified; R01.1 Cardiac murmur, unspecified
CPT/HCPCS: 78452; 93017; 93306; A9502; J2785

== ENCOUNTER 2025-04-17 10:43 | Outpatient (CLI) | payer MEDICARE, SELFPAY ==
[2025-04-17 11:42] LABS: Hematocrit 47.4 % (37.0-47.0); Hemoglobin 15.5 g/dL (12.0-15.0); Immature Granulocyte Percent A 0.5 % (0-0.5); Lymphocytes Absolute Auto 1.19 K/mm3 (0.9-3.2); Mean Corpuscular HGB Conc 32.7 g/dl (32-36); Mean Corpuscular Hemoglobin 29.5 pg (26-34); Mean Corpuscular Volume 90.3 fl (80-100); Nucleated Red Blood Cells Absolute Auto 0.000 K/mm3 (0.0-0.012); Nucleated Red Blood Cells Perc 0.0 % (0.0-0.2); Platelet Count Result 264 k/mm3 (150-375); Red Blood Count 5.25 M/mm3 (4.2-5.4); White Blood Count 4.3 K/mm3 (4.5-10.0)
[2025-04-17 12:06] LABS: Alanine Aminotransferase 21 U/L (6-35); Albumin Level 4.6 g/dL (3.5-5.1); Alkaline Phosphatase 88 U/L (38-126); Anion Gap 10 mmol/L (4-12); Aspartate Amino Transferase 30 U/L (14-36); Bilirubin,Total 0.6 mg/dL (0.2-1.3); Blood Urea Nitrogen 23 mg/dL (7-17); Calcium 9.2 mg/dL (8.4-10.2); Carbon Dioxide 25 mmol/L (22-30); Chloride 103 mmol/L (98-107); Cholesterol 270 mg/dL (0-200); Estimated Glomerular Filt Rate 50; Glucose 130 mg/dL (65-110); HDL Direct 65 mg/dL; Potassium 4.2 mmol/L (3.4-5.0); Sodium 138 mmol/L (137-145); Total Protein 8.2 g/dL (6.3-8.2); Triglycerides 106 mg/dL (<150)
[2025-04-17 12:46] LABS: Hemoglobin A1C 6.7 % (<5.7)
== END 2025-04-17 10:44 | disposition home or self-care (01) ==
LOC: ANHLAB 10:45
PROVIDERS: PCP Family Medicine; Visit Provider Physician Assistant
DX: I10 Essential (primary) hypertension (principal); E78.2 Mixed hyperlipidemia; E11.9 Type 2 diabetes mellitus without complications
CPT/HCPCS: 36415; 80053; 80061; 83036; 85025

== ENCOUNTER 2025-04-25 12:37 | Outpatient (CLI) | payer MEDICARE, SELFPAY ==
--- OUTSIDE RECORDS SUMMARY | 2025-04-25 15:04 | XMS_ITS | Clinical Summary ---
Author Organization [facility] Address [address] [place] [address] Care Team Providers Care Form Setter Steel Pan Forms Name Role Phone Bianca Booth MD Primary Care Provider Source Comments [facility],non-[facility] Affiliates and Associated Physician Practices is amultiple site organization consisting of ambulatory clinics and hospital sitesin [place], [place] and [place]. This disclosure is being madepursuant to the Care Everywhere program and may not contain all information available regarding this patient. Last updated 18.[facility] Allergies Active Allergy Reactions Criticality Noted Date [...] mouth at bedtime. 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 Gender Identity Not on file Sexual Orientation [...] 6:55 AM CDT Height 162.6 cm (5' 4) 09/29/2011 6:55 AM CDT Body Mass Index [...] yrs (1 - 1-dose 75+ series) 2013 DEPRESSION SCREENING 06/06/2024 COVID-19 VACCINE (2024-2 6 season) 2025 INFLUENZA VACCINE (#1) 2025 HEPATITIS B VACCINE Aged Out No [...] patient's age to complete this topic Insurance [address] [place] [address] Advance Directives Documents on File Type Date Recorded Patient Thermodynamic Physicist Expl anation Adv Directive/Living Will/POA 07/10/2011 9:58 AM * FULL RESUSCITATION (Latest Code Status on File) Date Activated Date Inactivated Comments 07/07/2011 10:45 AM 07/10/2011 12:21 AM Care Teams Form Setter Steel Pan Forms Relationship Specialty Start Date End Date Bianca Booth MD [address] [place] [address] [address] [place] [phone] PCP - General 06/21/11
--- OUTSIDE RECORDS SUMMARY | 2025-04-25 15:04 | XMS_ITS | Clinical Summary ---
Author Organization [facility] Care Team Providers Care Vocational Trainer Name Role Phone Unavailable Primary Care Provider Unavailabl e Social History Tobacco Use Types Packs/Day Years Used Date Smoking Tobacco: Never Assessed Comments Unknown Sex and Gender Information Value Date Recorded Sex Assigned at Not on file Legal Sex Female 2:12 PM CDT Gender Identity Not on file Sexual Orientation Not on file Plan of Treatment Health Maintenance Due Date Last Done Comments Hepatitis C Virus (HCV) Screening 1940 TdaP Immunization 1940 Pneumococcal Immunization (5 0+ years) (1 of 1 - PCV) 1988 Zoster Immunization (1 of 2) 1988 Respiratory Syncytial Virus (RSV) Immunization (Adult) (1 - 1-dose 75+ series) 2013 Influenza Immunization (#1) 2025 SARS-COV-2 Immunization ( season) 2025 Hepatitis B Immunization Aged Out No longer eligible based on patient's age to complete this topic Human Papillomavirus (HPV) Immunization Aged Out No longer eligible b ased on patient's age to complete this topic Meningococcal Immunization (ACWY) Aged Out No longer eligible based on patient's age to complete this topic Rotavirus Immunization Aged Out No lo nger eligible based on patient's age to complete this topic
--- NOTE | 2025-04-25 16:17 | WPDPFTINT ---
PFT Procedure Performed PFT Procedure Performed Plethysmography (Lung Vol) Diffusing Cap (DLCO) Flow Vol Loop Spirometry w/o Bronchodil PFT Interpretation This is a pulmonary function test with spirometry, plethysmography and diffusing capacity. The test was performed and results interpreted in accordance with the 2019 and 2005 ATS/ERS Task Force guidelines respectively using the Global Lung Function Initiative-2012 reference equations. Patient demonstrated good effort and cooperation. Reproducibility criteria were met. The quality of the spirometry maneuver was Grade A. Findings: Spirometry: The contour the inspiratory and expiratory flow tracing are normal. The FVC is 2.18 L, 92% predicted. The FEV1 is 1.49 L, 84% predicted. The FEV1: FVC ratio 68%. Plethysmography: Total lung capacity is 5.66 L, 111% predicted. The functional residual capacity is 4.01 L, 136% predicted. The residual volume is 3.37 L, 133% predicted. Diffusing capacity: The diffusing capacity unadjusted for hemoglobin and carboxyhemoglobin is 14.3, 77% predicted. The diffusing capacity adjusted for alveolar volume is 3.79, 94% predicted. Impression: The spirometry is normal without evidence of an obstructive abnormality. The total lung capacity is normal with an increased functional residual capacity and residual volume. This is an abnormal but nonspecific lung volume pattern. The diffusing capacity is normal. There are no prior studies for comparison
== END 2025-04-25 12:38 | disposition home or self-care (01) ==
PROVIDERS: PCP Family Medicine; Visit Provider Physician Assistant
DX: R91.8 Other nonspecific abnormal finding of lung field (principal); R05.3 Chronic cough
CPT/HCPCS: 94375; 94726; 94729

== ENCOUNTER 2025-05-21 14:18 | Outpatient (CLI) | payer MEDICARE, SELFPAY ==
--- NOTE | ~2025-05-21 | XR_ITS ---
[id number] Indication: cervicalgia, pt states chronic pain to head and neck Comparison: None Findings: The vertebral heights are intact. No fracture or subluxation. Moderate to severe loss of disc height C4-5 C5-6 and C6-7. Soft tissues unremarkable Impression: No acute abnormality. Reviewed, dictated and finalized at location P. ER OPERATOR Impression: No acute abnormality.
--- OUTSIDE RECORDS SUMMARY | 2025-05-21 16:50 | XMS_ITS | Clinical Summary ---
Author Organization [facility] Address [address] [place] [address] Care Team Providers Care Director Medical Economics Name Role Phone Bianca Booth MD Primary Care Provider Source Comments [facility],non-[facility] Affiliates and Associated Physician Practices is amultiple site organization consisting of ambulatory clinics and hospital sitesin [place], [place], [place] and [place]. This disclosure is being madepursuant to the Care Everywhere program and may not contain all information available regarding this patient. Last updated 18.[facility] Allergies Active Allergy Reactions Criticality Noted Date [...] mouth at bedtime. 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 Gender Identity Not on file Sexual Orientation [...] patient's age to complete this topic Insurance [address] [place] [address] Advance Directives Documents on File Type Date Recorded Patient Heart Coordinator Expl anation Adv Directive/Living Will/POA 07/10/2011 9:58 AM * FULL RESUSCITATION (Latest Code Status on File) Date Activated Date Inactivated Comments 07/07/2011 10:45 AM 07/10/2011 12:21 AM Care Teams Director Medical Economics Relationship Specialty Start Date End Date Bianca Booth MD [address] [place] [address] [address] [place] [phone] PCP - General 06/21/11
--- OUTSIDE RECORDS SUMMARY | 2025-05-21 16:50 | XMS_ITS | Clinical Summary ---
Author Organization [facility] Care Team Providers Care Press Department Manager Name Role Phone Unavailable Primary Care [...]
== END 2025-05-21 14:19 | disposition home or self-care (01) ==
PROVIDERS: PCP Family Medicine; Visit Provider Physician Assistant
DX: M54.2 Cervicalgia (principal)
CPT/HCPCS: 72040